=== PATIENT | female | born 1980 | race Caucasian/White ===

== ENCOUNTER 2016-12-01 18:51 | Emergency (ER) | payer SELFPAY ==
--- NOTE | 2016-12-01 19:16 | ER Document Report ---
ED Medical Screen (RME) - General Stated Complaint: POSSIBLE KIDNEY STONES Mode of Arrival: Ambulatory Information source: Patient Notes: Patient complains of right flank pain that radiates to right side of abdomen. Pain started 3 days ago. Patient has a history of kidney stones and suspects same today. Patient started taking Flomax at home. Patient complains of dysuria. Patient complains of vaginal discharge and vaginal bleeding. No fever. hx: Kidney stones I have greeted and performed a rapid initial assessment of this patient. A comprehensive ED assessment and evaluation of the patient, analysis of test results and completion of the medical decision making process will be conducted by additional ED providers. TRAVEL OUTSIDE OF THE [place] IN LAST 30 DAYS: No - Related Data Allergies/Adverse Reactions: valacyclovir HCl [From Valtrex] Allergy (Verified 09/18/16 12:48) Hives cayden Allergy (Uncoded 09/18/16 12:48) Respiratory distress Past Medical History - Past Medical History Cardiac Medical History: Reports: Hx Hypertension Renal/ Medical History: Reports: Hx Kidney Stones, Hx Ovarian Cysts GI Medical History: Reports: Hx Gastroesophageal Reflux Disease. Denies: Hx Gastritis Psychiatric Medical History: Reports: Hx Anxiety, Hx Attention Deficit Hyperactivity Disorder Past Surgical History: Reports: Hx Kidney (Renal Surgery) - lithotripsy, Hx Oral Surgery, Hx Orthopedic Surgery - L elbow bone graft, Hx Tonsillectomy - Immunizations Immunizations up to date: Yes Hx Diphtheria, Pertussis, Tetanus Vaccination: Yes Physical Exam - Vital signs Vitals: Temp Pulse Resp BP Pulse Ox 98.0 F 91 19 125/87 H 100 12/01/16 18:55 12/01/16 18:55 12/01/16 18:55 12/01/16 18:55 12/01/16 18:55 - Back Back: CVA tenderness - Right flank Course - Vital Signs Vital signs: Temp Pulse Resp BP Pulse Ox 98.0 F 91 19 125/87 H 100 12/01/16 18:55 12/01/16 18:55 12/01/16 18:55 12/01/16 18:55 12/01/16 18:55
[2016-12-01 20:28] LABS: ABSOLUTE BASOPHILS # (AUTO) 0.1 10^3/uL (0.0-0.2); ABSOLUTE EOSINOPHILS # (AUTO) 0.3 10^3/uL (0.0-0.6); ABSOLUTE LYMPHOCYTES (AUTO) 2.6 10^3/uL (0.5-4.7); ABSOLUTE MONOCYTES (AUTO) 0.6 10^3/uL (0.1-1.4); ABSOLUTE NEUT (AUTO) 4.6 10^3/uL (1.7-8.2); BASOPHILS % (AUTO) 0.9 % (0-2); EOSINOPHILS % (AUTO) 3.1 % (0-6); HEMATOCRIT 45.9 % (36.0-47.0); HEMOGLOBIN 15.2 g/dL (12.0-15.5); HGB HCT DIFFERENCE -0.3; LYMPHOCYTES % (AUTO) 31.6 % (13-45); MEAN CORPUSCULAR HEMOGLOBIN 32.6 pg (27.0-33.4); MEAN CORPUSCULAR HGB CONC 33.2 g/dL (32.0-36.0); MEAN CORPUSCULAR VOLUME 98 fl (80-97); MONOCYTES % (AUTO) 7.7 % (3-13); RED BLOOD COUNT 4.67 10^6/uL (3.72-5.28); RED CELL DISTRIBUTION WIDTH 13.7 % (11.5-14.0); SEGMENTED NEUTROPHILS % (AUTO) 56.7 % (42-78); WHITE BLOOD COUNT 8.2 10^3/uL (4.0-10.5)
[2016-12-01 20:32] LABS: APPEARANCE,URINE CLEAR; BILIRUBIN,URINE NEGATIVE (NEGATIVE); GLUCOSE, URINE NEGATIVE (NEGATIVE); KETONES,URINE NEGATIVE (NEGATIVE); LEUKOCYTE ESTERASE,URINE NEGATIVE (NEGATIVE); NITRITE,URINE NEGATIVE (NEGATIVE); PROTEIN,URINE NEGATIVE (NEGATIVE); URINE SPECIFIC GRAVITY 1.004; UROBILINOGEN,URINE NEGATIVE mg/dL (<2.0)
[2016-12-01 20:47] LABS: ALANINE AMINOTRANSFERASE 21 U/L (9-52); ALBUMIN 5.4 g/dL (3.5-5.0); ALKALINE PHOSPHATASE 64 U/L (38-126); ANION GAP 14 (5-19); ASPARTATE AMINO TRANSFERASE 21 U/L (14-36); BLOOD UREA NITROGEN 10 mg/dL (7-20); CALCIUM 10.9 mg/dL (8.4-10.2); CARBON DIOXIDE 25 mmol/L (22-30); CHLORIDE 104 mmol/L (98-107); CREATININE RESULT 0.69 mg/dL (0.52-1.25); GLUCOSE 96 mg/dL (75-110); LIPASE 83.4 U/L (23-300); POTASSIUM 4.9 mmol/L (3.6-5.0); SODIUM 143.2 mmol/L (137-145); TOTAL PROTEIN 8.6 g/dL (6.3-8.2)
[2016-12-01] MEDS ORDERED: OXYCODONE-ACETAMINOPHEN 5-325 MG TABLET PO ONE (23:20)
[2016-12-01] MEDS ORDERED: ONDANSETRON 4 MG TAB.RAPDIS PO ONE (23:20)
--- NOTE | 2016-12-01 23:24 | ER Document Report ---
ED GI/ - General Chief Complaint: Flank Pain Stated Complaint: POSSIBLE KIDNEY STONES Mode of Arrival: Ambulatory Notes: Patient is a 36 year old female that comes emergency department for chief complaint of sharp pain in her right pelvic area that started today, she denies vomiting, denies fever, she does feel some radiation to her lower back on the right side. She states that she has started having vaginal bleeding, she recently finished her menstrual cycle about 2 weeks ago. She is sexually active. She denies fever, trauma. Past medical history of kidney stones, she states she wonders if she is passing a kidney stone. TRAVEL OUTSIDE OF THE [place] IN LAST 30 DAYS: No - Related Data Allergies/Adverse Reactions: valacyclovir HCl [From Valtrex] Allergy (Verified 12/01/16 19:18) Hives cayden Allergy (Uncoded 12/01/16 19:18) Respiratory distress Past Medical History - General Information source: Patient - Social History Smoking Status: Former Smoker Frequency of alcohol use: None Drug Abuse: None Lives with: Family Family History: Reviewed & Not Pertinent - Past Medical History Cardiac Medical History: Reports: Hx Hypertension Renal/ Medical History: Reports: Hx Kidney Stones, Hx Ovarian Cysts. Denies: Hx Peritoneal Dialysis GI Medical History: Reports: Hx Gastroesophageal Reflux Disease. Denies: Hx Gastritis Psychiatric Medical History: Reports: Hx Anxiety, Hx Attention Deficit Hyperactivity Disorder Past Surgical History: Reports: Hx Kidney (Renal Surgery) - lithotripsy, Hx Oral Surgery, Hx Orthopedic Surgery - L elbow bone graft, Hx Tonsillectomy - Immunizations Immunizations up to date: Yes Hx Diphtheria, Pertussis, Tetanus Vaccination: Yes Review of Systems - Review of Systems Constitutional: No symptoms reported EENT: No symptoms reported Cardiovascular: No symptoms reported Respiratory: No symptoms reported Gastrointestinal: See HPI Genitourinary: See HPI Female Genitourinary: See HPI Musculoskeletal: No symptoms reported Skin: No symptoms reported Hematologic/Lymphatic: No symptoms reported Neurological/Psychological: No symptoms reported Physical Exam - Vital signs Vitals: Temp Pulse Resp BP Pulse Ox 98.0 F 91 19 125/87 H 100 12/01/16 18:55 12/01/16 18:55 12/01/16 18:55 12/01/16 18:55 12/01/16 18:55 Interpretation: Normal - General General appearance: Anxious In distress: None - Patient appears nervous and slightly uncomfortable but does not appear to be in any distress - HEENT Head: Normocephalic, Atraumatic Eyes: Normal Pupils: PERRL - Respiratory Respiratory status: No respiratory distress Chest status: Nontender Breath sounds: Normal Chest palpation: Normal - Cardiovascular Rhythm: Regular Heart sounds: Normal auscultation Murmur: No - Abdominal Inspection: Normal Distension: No distension Bowel sounds: Normal Tenderness: Tender - Patient is tender in the right lower pelvic region, no McBurney's point tenderness, no significant tenderness otherwise Organomegaly: No organomegaly - Back Back: Normal, Nontender. No: CVA tenderness - Extremities General upper extremity: Normal inspection, Nontender, Normal color, Normal ROM , Normal temperature General lower extremity: Normal inspection, Nontender, Normal color, Normal ROM , Normal temperature, Normal weight bearing. No: Azar's sign - Neurological Neuro grossly intact: Yes Cognition: Normal Orientation: AAOx4 Dong Coma Scale Eye Opening: Spontaneous Dong Coma Scale Verbal: Oriented [place] Coma Scale Motor: Obeys Commands [place] Coma Scale Total: 15 Speech: Normal Motor strength normal: LUE, RUE, LLE, RLE Sensory: Normal - Psychological Associated symptoms: Anxious - Skin Skin Temperature: Warm Skin Moisture: Dry Skin Color: Normal Course - Re-evaluation Re-evalutation: On examination patient has no CVA tenderness, no lower abdominal tenderness, however she does have tenderness in the right pelvic region on examination with wincing. Pelvic examination is unremarkable, IUD strings in place. No hematuria suggesting ureterolithiasis. Blood work is unremarkable. Vital signs unremarkable. 12/02/16 Wet prep unremarkable, gonorrhea and Chlamydia negative, ultrasound with no acute findings including no ovarian cysts, significant free fluid, or evidence of torsion. Patient with minimal to no bleeding now. 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 Patient states understanding and agreement. - Vital Signs Vital signs: Temp Pulse Resp BP Pulse Ox 98.0 F 91 19 125/87 H 100 12/01/16 18:55 12/01/16 18:55 12/01/16 18:55 12/01/16 18:55 12/01/16 18:55 - Laboratory Result Diagrams: 12/01/16 20:15 12/01/16 20:15 Laboratory results interpreted by me: 12/01/16 12/01/16 12/01/16 20:15 20:15 20:20 MCV 98 H Calcium 10.9 H Total Protein 8.6 H Albumin 5.4 H Urine Blood SMALL H Discharge - Discharge Clinical Impression: Pelvic pain, Vaginal bleeding Condition: Stable Disposition: HOME, SELF-CARE Additional Instructions: The ultrasound shows no concerning abnormalities, the IUD is in place, lab work including pelvic exam workup showed no abnormalities. 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 Return to the emergency department for any concerning or worsening symptoms. Dysfunctional Uterine Bleeding You're having an abnormal pattern of bleeding from the uterus. We call this dysfunctional uterine bleeding. It is most often caused by a hormone imbalance. Most often this is temporary and no cause is found. There's no evidence of , tumors, or infection as a cause. Dysfunctional uterine bleeding is especially common at times when the normal menstrual cycle is disturbed -- whether by recent , use of control pills or hormones, or impending menopause. Some medical problems lead to dysfunctional bleeding, such as obesity or being very underweight, stress, or thyroid problems. In many cases, the menstrual cycle will return to normal without any treatment. Where the bleeding is significant, high-dose estrogen will usually stop the bleeding within a day of two. A cycle or two of hormones ( control pills) can help restore the uterus to normal. In some patients where bleeding is severe or resistant to treatment, a D&C is required. A endometrial biopsy (a sample of the inside of the uterus) may be recommended for some older women. This would be done by a gynecology specialist. Treatment for anemia may be required if bleeding is severe. You should rest and avoid intercourse until the bleeding is controlled. Call the doctor or return for re-examination if you feel faint, have increasing pain, or have a major increase in the amount of bleeding. Prescriptions: Ketorolac Tromethamine [Toradol 10 mg Tablet] 10 mg PO Q8HP PRN #24 tablet PRN Reason: Forms: Return to Work
[2016-12-02 01:43] LABS: CHLAM PCR NOT DETECTED (NOT DETECT)
[2016-12-02] MEDS ORDERED: OXYCODONE-ACETAMINOPHEN 5-325 MG TABLET PO ONE (02:08)
[2016-12-02] MEDS ORDERED: HYDROCODONE/ACETAMINOPHEN 5-325 MG 6 TAB/DSPK PO PRN (02:34)
[2016-12-02 04:01] VITALS: BP 138/94
== END 2016-12-02 03:35 | disposition home or self-care (01) ==
LOC: ER 18:51
DX: R10.2 Pelvic and perineal pain (principal); N93.9 Abnormal uterine and vaginal bleeding, unspecified; I10 Essential (primary) hypertension; Z87.442 Personal history of urinary calculi; Z91.018 Allergy to other foods; Z88.3 Allergy status to other anti-infective agents; Z87.891 Personal history of nicotine dependence; Z87.42 Personal history of other diseases of the female genital tract; Z97.5 Presence of (intrauterine) contraceptive device
CPT/HCPCS: 99284; 36415; 87210; 83690; 84703; 85025; 80053; 81001; 87491; 87591; 76830; 93976; S0119

== ENCOUNTER 2017-02-22 11:35 | Emergency (ER) | payer SELFPAY ==
--- NOTE | 2017-02-22 11:59 | ER Document Report ---
ED Fall - General Mode of Arrival: Medic Information source: Patient TRAVEL OUTSIDE OF THE [place] IN LAST 30 DAYS: No - HPI Patient complains to provider of: Head, Neck, and Back pain Context: Slipped, Fell from height Associated symptoms: Other - see notes above. denies: Lost consciousness Location of injury/pain: Back, Head, Neck - General Chief Complaint: Head Injury without LOC Stated Complaint: HEAD PAIN Time Seen by Provider: 02/22/17 11:48 Notes: 36 year old female with history of herniated thoracic discs and Von Willebrand disease presents to the ED via EMS after slipping on her bath tub and falling backwards hitting her head on the tub just prior to arrival. Patient reports that she has head, neck, upper back, and tailbone pain. Patient denies loss of consciousness or any bleeding. Patient does not have a primary care provider and has not seen one in over a year. (MIAN SHARMA) - Related data Allergies/Adverse Reactions: valacyclovir HCl [From Valtrex] Allergy (Verified 12/01/16 19:18) Hives cayden Allergy (Uncoded 12/01/16 19:18) Respiratory distress Past Medical History - General Information source: Patient - Social History Smoking Status: Unknown if Ever Smoked Family History: Reviewed & Not Pertinent - Past Medical History Cardiac Medical History: Reports: Hx Hypertension, Other - Von Willebrand Disease Renal/ Medical History: Reports: Hx Kidney Stones, Hx Ovarian Cysts. Denies: Hx Peritoneal Dialysis GI Medical History: Reports: Hx Gastroesophageal Reflux Disease. Denies: Hx Gastritis Musculoskeltal Medical History: Reports Other - herniated thoracic discs Psychiatric Medical History: Reports: Hx Anxiety, Hx Attention Deficit Hyperactivity Disorder Past Surgical History: Reports: Hx Kidney (Renal Surgery) - lithotripsy, Hx Oral Surgery, Hx Orthopedic Surgery - L elbow bone graft, Hx Tonsillectomy - Immunizations Immunizations up to date: Yes Hx Diphtheria, Pertussis, Tetanus Vaccination: Yes Review of Systems - Review of Systems Constitutional: No symptoms reported EENT: No symptoms reported Cardiovascular: No symptoms reported Respiratory: No symptoms reported Gastrointestinal: No symptoms reported Genitourinary: No symptoms reported Female Genitourinary: No symptoms reported Musculoskeletal: See HPI, Back pain - upper and tailbone, Neck pain, Other - posterior head pain Skin: No symptoms reported Hematologic/Lymphatic: No symptoms reported Neurological/Psychological: No symptoms reported. denies: Lost consciousness -: Yes All other systems reviewed and negative Physical Exam - General General appearance: Alert In distress: None - HEENT Head: Normocephalic, Atraumatic Eyes: Normal Extraocular movements intact: Yes Pupils: PERRL Neck: Other - C-collar in place. - Respiratory Respiratory status: No respiratory distress Breath sounds: Normal - Cardiovascular Rhythm: Regular Heart sounds: Normal auscultation - Abdominal Inspection: Normal - Back Back: Tender, Vertebra tenderness - Midline thoracic and lower lumbar tenderness to palpation. No contusion, step off, or deformity.. 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 This often occurs with strenuous exertion, or during an injury that suddenly stretches the muscle. The seriousness of a strain varies. Some strains heal within days, others cause problems for months. X-rays cannot show a muscle strain. X-rays are taken only if symptoms suggest that a fracture could be present. The usual treatment of a muscle strain is rest and ice packs. Sometimes, a sling, splint, or crutches may be necessary to rest the muscle. The muscle can be used again once pain subsides. Severe strains require a special exercise and stretching program to prevent permanent stiffness and disability. Your doctor will advise you if this will be necessary. Call the doctor immediately if pain or swelling becomes severe, or if numbness or discoloration develop. Forms: Return to Work Referrals: [facility] [Provider Group] - Follow up in 3-5 days Scribe Attestation: 02/22/17 13:43 I personally performed the services described in the documentation reviewed the documentation recorded by my scribe in my presence and it accurately and completely records my words and actions (CAROLINA FLORES) Scribe Documentation - Scribe Written by Scribe:: Luis Gonzalez, 02/22/2017 1221 acting as scribe for :: Yunior
[2017-02-22] MEDS ORDERED: ONDANSETRON HCL INJ/PF 4 MG/2 ML SDV ONE (12:07)
[2017-02-22] MEDS ORDERED: ONDANSETRON HCL INJ/PF 4 MG/2 ML SDV IV ONE (13:31)
[2017-02-22 14:08] VITALS: BP 126/81
--- NOTE | 2017-05-06 20:02 | ER Document Report ---
Doctor's Note Notes: 05/06/17 20:02 diagnosis 1. acute low back strain
== END 2017-02-22 14:00 | disposition home or self-care (01) ==
LOC: ER 11:35
DX: S09.90XA Unspecified injury of head, initial encounter (principal); R51 Headache; M54.2 Cervicalgia; M54.89 Other dorsalgia; M53.3 Sacrococcygeal disorders, not elsewhere classified; W18.2XXA Fall in (into) shower or empty bathtub, initial encounter; I10 Essential (primary) hypertension; Z91.018 Allergy to other foods; Z88.3 Allergy status to other anti-infective agents
CPT/HCPCS: 99284; 96374; 72110; 70450; 72125; 72128; L0120; J2405

== ENCOUNTER 2017-04-24 10:34 | Emergency (ER) | payer SELFPAY ==
[2017-04-24] MEDS ORDERED: ONDANSETRON 4 MG TAB.RAPDIS PO ONE (10:47)
[2017-04-24] MEDS ORDERED: OXYCODONE-ACETAMINOPHEN 5-325 MG TABLET PO ONE (10:47)
[2017-04-24] MEDS ORDERED: NORMAL SALINE 1000 ML 1,000 ML IV ONE (10:47)
--- NOTE | 2017-04-24 10:49 | ER Document Report ---
ED Medical Screen (RME) - General Chief Complaint: Flank Pain Stated Complaint: LOWER BACK PAIN Time Seen by Provider: 04/24/17 10:46 Information source: Patient Notes: 36-year-old female who presents with the onset around 1 week of some intermittent bilateral flank pain. She states it is worse the last 2 days. She also states some "vaginal pain". She denies any discharge, dysuria, vomiting, fevers, or diarrhea. Patient does have a history of kidney stones. Patient also states she has some pain in her bilateral upper hips and thighs. She denies any weakness of her legs. TRAVEL OUTSIDE OF THE [place] IN LAST 30 DAYS: No - Related Data Allergies/Adverse Reactions: valacyclovir HCl [From Valtrex] Allergy (Verified 04/24/17 10:37) Hives cayden Allergy (Uncoded 04/24/17 10:37) Respiratory distress Past Medical History - Past Medical History Cardiac Medical History: Reports: Hx Hypertension Renal/ Medical History: Reports: Hx Kidney Stones, Hx Ovarian Cysts. Denies: Hx Peritoneal Dialysis GI Medical History: Reports: Hx Gastroesophageal Reflux Disease. Denies: Hx Gastritis Psychiatric Medical History: Reports: Hx Anxiety, Hx Attention Deficit Hyperactivity Disorder Past Surgical History: Reports: Hx Kidney (Renal Surgery) - lithotripsy, Hx Oral Surgery, Hx Orthopedic Surgery - L elbow bone graft, Hx Tonsillectomy - Immunizations Immunizations up to date: Yes Hx Diphtheria, Pertussis, Tetanus Vaccination: Yes Physical Exam - Vital signs Vitals: Temp Pulse Resp BP Pulse Ox 97.9 F 108 H 20 153/101 H 100 04/24/17 10:37 04/24/17 10:37 04/24/17 10:37 04/24/17 10:37 04/24/17 10:37 Course - Vital Signs Vital signs: Temp Pulse Resp BP Pulse Ox 97.9 F 108 H 20 153/101 H 100 04/24/17 10:37 04/24/17 10:37 04/24/17 10:37 04/24/17 10:37 04/24/17 10:37
[2017-04-24 11:23] LABS: APPEARANCE,URINE CLEAR; BILIRUBIN,URINE NEGATIVE (NEGATIVE); GLUCOSE, URINE NEGATIVE (NEGATIVE); KETONES,URINE NEGATIVE (NEGATIVE); LEUKOCYTE ESTERASE,URINE NEGATIVE (NEGATIVE); NITRITE,URINE NEGATIVE (NEGATIVE); PROTEIN,URINE NEGATIVE (NEGATIVE); URINE SPECIFIC GRAVITY 1.018; UROBILINOGEN,URINE NEGATIVE mg/dL (<2.0)
[2017-04-24 11:32] LABS: ABSOLUTE BASOPHILS # (AUTO) 0.1 10^3/uL (0.0-0.2); ABSOLUTE EOSINOPHILS # (AUTO) 0.3 10^3/uL (0.0-0.6); ABSOLUTE LYMPHOCYTES (AUTO) 2.2 10^3/uL (0.5-4.7); ABSOLUTE MONOCYTES (AUTO) 0.6 10^3/uL (0.1-1.4); ABSOLUTE NEUT (AUTO) 2.4 10^3/uL (1.7-8.2); BASOPHILS % (AUTO) 1.2 % (0-2); EOSINOPHILS % (AUTO) 4.8 % (0-6); HEMATOCRIT 45.3 % (36.0-47.0); HEMOGLOBIN 15.4 g/dL (12.0-15.5); HGB HCT DIFFERENCE 0.9; LYMPHOCYTES % (AUTO) 40.5 % (13-45); MEAN CORPUSCULAR HEMOGLOBIN 33.5 pg (27.0-33.4); MEAN CORPUSCULAR VOLUME 99 fl (80-97); MONOCYTES % (AUTO) 10.7 % (3-13); RED CELL DISTRIBUTION WIDTH 13.2 % (11.5-14.0); SEGMENTED NEUTROPHILS % (AUTO) 42.8 % (42-78); WHITE BLOOD COUNT 5.5 10^3/uL (4.0-10.5)
[2017-04-24 11:39] LABS: ANION GAP 12 (5-19); BLOOD UREA NITROGEN 12 mg/dL (7-20); CALCIUM 9.7 mg/dL (8.4-10.2); CARBON DIOXIDE 28 mmol/L (22-30); CHLORIDE 102 mmol/L (98-107); CREATININE RESULT 0.87 mg/dL (0.52-1.25); GLUCOSE 93 mg/dL (75-110); POTASSIUM 4.5 mmol/L (3.6-5.0); SODIUM 141.8 mmol/L (137-145)
--- NOTE | 2017-04-24 12:31 | RADIOLOGY REPORT (SQ) ---
EXAM DESCRIPTION: CT LTD RENAL STONE PROTOCOL ON COMPLETED DATE/TIME: 04/24/2017 12:00 pm REASON FOR STUDY: PIT 1, flank pain and llq pain. H/o stones COMPARISON: None. TECHNIQUE: CT scan of the abdomen and pelvis performed without intravenous or oral contrast. Images reviewed with lung, soft tissue, and bone windows. Reconstructed coronal and sagittal MPR images revi ewed. All images stored on PACS. All CT scanners at this facility use dose modulation, iterative reconstruction, and/or weight based d osing when appropriate to reduce radiation dose to as low as reasonably achievable (ALARA). [facility]: Dose Right [facility]: CareDose [facility]: Dose Right [facility]: Teradose 4D [facility]: Smart [employer] RADIATION DOSE: Up-to-date CT equipment and radiation dose reduction techniques were employed. CTDIv ol: 4.8 mGy. DLP: 263 mGy-cm.mGy. LIMITATIONS: None. FINDINGS: LOWER CHEST: No significant findings. No nodules or infiltrates. NON-CONTRASTED LIVER, SPLEEN, ADRENALS: Evaluation limited by lack of IV contrast. No identified sign ificant masses. PANCREAS: No masses. No peripancreatic inflammatory changes. GALLBLADDER: No identified stones by CT criteria. No inflammatory changes to suggest cholecystitis. RIGHT KIDNEY AND URETER: No suspicious masses. Assessment limited by lack of IV contrast. No signif icant calcifications. No hydronephrosis or hydroureter. LEFT KIDNEY AND URETER: No suspicious masses. Assessment limited by lack of IV contrast. No signifi cant calcifications. No hydronephrosis or hydroureter. AORTA AND RETROPERITONEUM: No aneurysm. No retroperitoneal masses or adenopathy. BOWEL AND PERITONEAL CAVITY: No obvious masses or inflammatory changes. No free fluid. Large amount of stool in the colon. APPENDIX: Normal. PELVIS, BLADDER, AND ABDOMINAL WALL:No abnormal masses. No free fluid. Bladder normal. Normal size f emale pelvic organs. IUD in the uterus. BONES: No significant findings. OTHER: No other significant finding. IMPRESSION: No CT evidence of obstructive urinary calculi Large amount of stool in the colon TECHNICAL DOCUMENTATION: JOB ID: [id number] Quality ID # [id number]: Final reports with documentation of one or more dose reduction techniques (e.g., Au tomated exposure control, adjustment of the mA and/or kV according to patient size, use of iterative reconstruction technique) 2011 [employer]- All Rights Reserved
--- NOTE | 2017-04-24 12:33 | ER Document Report ---
ED General - General Chief Complaint: Flank Pain Stated Complaint: LOWER BACK PAIN Time Seen by Provider: 04/24/17 10:46 Mode of Arrival: Ambulatory Information source: Patient TRAVEL OUTSIDE OF THE [place] IN LAST 30 DAYS: No - HPI Notes: 36-year-old female presents with increasing back pain over the last 48 hours. She reports to me she has been having some intermittent pain that she thought was related to her chronic kidney stones the last couple of weeks. She has noted much more severe low back pain now with pain radiating to the dorsum of her left thigh, a little bit to the front as well. Pain also radiates to her buttocks bilaterally. Denies distal numbness or tingling. She does have a history of work-related herniated disks in her lower thoracic region. She denies any new numbness tingling, incontinence of bowel or bladder change otherwise. She had a little hematuria but no specific dysuria. She reports no abdominal pain to me or vaginal discomfort/discharge. Pain is worse with movement. She has found no other alleviating or exacerbating symptoms. - Related Data Allergies/Adverse Reactions: valacyclovir HCl [From Valtrex] Allergy (Verified 04/24/17 10:37) Hives cayden Allergy (Uncoded 04/24/17 10:37) Respiratory distress Past Medical History - General Information source: Patient - Social History Smoking Status: Smoker,Current Status Unk Family History: Reviewed & Not Pertinent Patient has suicidal ideation: No Patient has homicidal ideation: No - Past Medical History Cardiac Medical History: Reports: Hx Hypertension Renal/ Medical History: Reports: Hx Kidney Stones, Hx Ovarian Cysts. Denies: Hx Peritoneal Dialysis GI Medical History: Reports: Hx Gastroesophageal Reflux Disease. Denies: Hx Gastritis Psychiatric Medical History: Reports: Hx Anxiety, Hx Attention Deficit Hyperactivity Disorder Past Surgical History: Reports: Hx Kidney (Renal Surgery) - lithotripsy, Hx Oral Surgery, Hx Orthopedic Surgery - L elbow bone graft, Hx Tonsillectomy - Immunizations Immunizations up to date: Yes Hx Diphtheria, Pertussis, Tetanus Vaccination: Yes Review of Systems - Review of Systems -: Yes All other systems reviewed and negative Physical Exam - Vital signs Vitals: Temp Pulse Resp BP Pulse Ox 97.9 F 108 H 20 153/101 H 100 04/24/17 10:37 04/24/17 10:37 04/24/17 10:37 04/24/17 10:37 04/24/17 10:37 - Notes Notes: GENERAL: VS as per nursing doc. Well-appearing, well-nourished and in no acute distress. HEAD: Atraumatic, normocephalic. EYES: Pupils equal round and reactive to light, extraocular movements intact, sclera anicteric, no conjunctival injection or discharge. ENT: Nares patent, oropharynx clear without exudates, moist mucous membranes. NECK: Normal range of motion, supple without lymphadenopathy. LUNGS: Breath sounds clear to auscultation bilaterally and equal. No wheezes rales or rhonchi. HEART: Regular rate and rhythm without murmurs. ABDOMEN: Soft, non-tender, normoactive bowel sounds. No guarding, no rebound. No masses appreciated. No Columbia sign. BACK: Mild CVA tenderness but more tender over the lower lumbar region more towards the lumbosacral junction bilaterally and in the midline region. She also has a split deformity, some decreased range of motion secondary to pain. EXTREMITIES: Normal range of motion, no calf tenderness, no edema. NEUROLOGICAL: Normal speech. Normal sensory and motor exams. No gross cerebellar abnormalities.5/5 lower extremity strength and sensation. 3+ and equal patellar reflexes PSYCH: Normal mood, normal affect. SKIN: Warm, dry, normal turgor, no shingles rash . Course - Re-evaluation Re-evalutation: 04/24/17 15:16 Received mild relief. Reviewed her prior medical records and her prior medication use. She did use Percocet at home without much relief she reported. I suspect she will have some difficulty with this but will get follow-up with her primary care physician. Discussed with her physical therapy and other modalities for pain control. Will place her on a course of steroids as well as Robaxin/NSAIDs to see if she can get some improvement - Vital Signs Vital signs: Temp Pulse Resp BP Pulse Ox 97.9 F 108 H 20 153/101 H 100 04/24/17 10:37 04/24/17 10:37 04/24/17 10:37 04/24/17 10:37 04/24/17 10:37 - Laboratory Result Diagrams: 04/24/17 10:57 04/24/17 10:57 Laboratory results interpreted by me: 04/24/17 10:57 MCV 99 H MCH 33.5 H Discharge - Discharge Clinical Impression: Back pain Condition: Fair Additional Instructions: Return for emergency or concern. Contact your physician for follow-up today. Discuss multiple modalities of pain treatment including physical therapy, NSAIDs as well as other medications. Limit activity and lifting for the next few days. Prescriptions: Methocarbamol [Robaxin 750 mg Tablet] 750 - 1,500 mg PO Q8HP PRN #20 tablet PRN Reason: For Pain Naproxen Sodium [Anaprox Ds] 550 mg PO BID PRN #20 tablet PRN Reason: For Pain Prednisone [Deltasone 20 mg Tablet] 2 tab PO DAILY #10 tablet Forms: Elevated Blood Pressure
[2017-04-24] MEDS ORDERED: MORPHINE SULFATE 10 MG/ML INJ IV ONE (13:26)
[2017-04-24] MEDS ORDERED: KETOROLAC TROMETHAMINE INJ/PF 30 MG/1 ML SDV IV ONE (13:27)
[2017-04-24 15:56] VITALS: BP 115/83
== END 2017-04-24 15:55 | disposition home or self-care (01) ==
LOC: ER 10:34
DX: M54.5 Low back pain (principal); R31.9 Hematuria, unspecified; I10 Essential (primary) hypertension; Z87.442 Personal history of urinary calculi; Z91.018 Allergy to other foods; Z88.3 Allergy status to other anti-infective agents
CPT/HCPCS: 99284; 36415; 85025; 81025; 80048; 81001; 76380; S0119; J1885; J2270; J7030

== ENCOUNTER 2017-08-17 13:22 | Emergency (ER) | payer SELFPAY ==
[2017-08-17] MEDS ORDERED: NORMAL SALINE 1000 ML 1,000 ML IV ONE (13:46)
[2017-08-17] MEDS ORDERED: ONDANSETRON HCL INJ/PF 4 MG/2 ML SDV IV ONE ×2 (13:46→20:55)
--- NOTE | 2017-08-17 13:48 | ER Document Report ---
ED Medical Screen (RME) - General Chief Complaint: Abdominal Pain Stated Complaint: VOMITING Time Seen by Provider: 08/17/17 13:45 Mode of Arrival: Wheelchair Information source: Patient TRAVEL OUTSIDE OF THE [place] IN LAST 30 DAYS: No - HPI Patient complains to provider of: abd pain; vomiting Onset: Other - Pt states she has had abdominal pain and recurrent vomiting for the past week. - Related Data Allergies/Adverse Reactions: valacyclovir HCl [From Valtrex] Allergy (Verified 08/17/17 13:32) Hives cayden Allergy (Uncoded 08/17/17 13:32) Respiratory distress Past Medical History - Past Medical History Cardiac Medical History: Reports: Hx Hypertension Renal/ Medical History: Reports: Hx Kidney Stones, Hx Ovarian Cysts. Denies: Hx Peritoneal Dialysis GI Medical History: Reports: Hx Gastroesophageal Reflux Disease. Denies: Hx Gastritis Psychiatric Medical History: Reports: Hx Anxiety, Hx Attention Deficit Hyperactivity Disorder Past Surgical History: Reports: Hx Kidney (Renal Surgery) - lithotripsy, Hx Oral Surgery, Hx Orthopedic Surgery - L elbow bone graft, Hx Tonsillectomy - Immunizations Immunizations up to date: Yes Hx Diphtheria, Pertussis, Tetanus Vaccination: Yes Physical Exam - Vital signs Vitals: Temp Pulse Resp Pulse Ox 97.8 F 121 H 20 96 08/17/17 13:33 08/17/17 13:33 08/17/17 13:33 08/17/17 13:33 Course - Vital Signs Vital signs: Temp Pulse Resp BP Pulse Ox 97.8 F 121 H 20 96 08/17/17 13:33 08/17/17 13:33 08/17/17 13:33 08/17/17 13:33
[2017-08-17 14:59] LABS: ABSOLUTE BASOPHILS # (AUTO) 0.1 10^3/uL (0.0-0.2); ABSOLUTE LYMPHOCYTES (AUTO) 2.1 10^3/uL (0.5-4.7); ABSOLUTE MONOCYTES (AUTO) 0.4 10^3/uL (0.1-1.4); ABSOLUTE NEUT (AUTO) 1.5 10^3/uL (1.7-8.2); BASOPHILS % (AUTO) 2.2 % (0-2); EOSINOPHILS % (AUTO) 0.9 % (0-6); HEMATOCRIT 39.5 % (36.0-47.0); HGB HCT DIFFERENCE 2.5; LYMPHOCYTES % (AUTO) 49.9 % (13-45); MEAN CORPUSCULAR HEMOGLOBIN 34.2 pg (27.0-33.4); MEAN CORPUSCULAR HGB CONC 35.4 g/dL (32.0-36.0); MEAN CORPUSCULAR VOLUME 97 fl (80-97); MONOCYTES % (AUTO) 9.5 % (3-13); RED CELL DISTRIBUTION WIDTH 13.2 % (11.5-14.0); SEGMENTED NEUTROPHILS % (AUTO) 37.5 % (42-78); WHITE BLOOD COUNT 4.1 10^3/uL (4.0-10.5)
[2017-08-17 15:10] LABS: APPEARANCE,URINE CLEAR; BILIRUBIN,URINE NEGATIVE (NEGATIVE); GLUCOSE, URINE NEGATIVE (NEGATIVE); KETONES,URINE NEGATIVE (NEGATIVE); LEUKOCYTE ESTERASE,URINE NEGATIVE (NEGATIVE); NITRITE,URINE NEGATIVE (NEGATIVE); PROTEIN,URINE 30 mg/dL (NEGATIVE); URINE SPECIFIC GRAVITY 1.006; UROBILINOGEN,URINE NEGATIVE mg/dL (<2.0)
--- NOTE | 2017-08-17 15:38 | RADIOLOGY REPORT (SQ) ---
EXAM DESCRIPTION: ACUTE ABDOMEN SERIES COMPLETED DATE/TIME: 08/17/2017 3:30 pm REASON FOR STUDY: abd pain; vomiting COMPARISON: None. NUMBER OF VIEWS: Three views. TECHNIQUE: Frontal chest, supine abdomen and upright/decubitus abdomen radiographic images acquired. LIMITATIONS: None. FINDINGS: CHEST: Lungs clear of infiltrates. FREE AIR: None. No abnormal gas collections. BOWEL GAS PATTERN: Nonobstructive pattern. No dilated loops or air fluid levels. CONSTIPATION: moderate. CALCIFICATIONS: No suspicious calcifications. HARDWARE: IUD. SOFT TISSUES: No gross mass or suggestion of organomegaly. BONES: No acute fracture. No worrisome bone lesions. OTHER: No other significant finding. IMPRESSION: NO RADIOGRAPHIC EVIDENCE FOR ACUTE ABDOMINAL DISEASE. MODERATE CONSTIPATION. IUD. TECHNICAL DOCUMENTATION: JOB ID: [id number] [employer]- All Rights Reserved
[2017-08-17] MEDS ORDERED: KETOROLAC TROMETHAMINE INJ/PF 30 MG/1 ML SDV IV ONE (15:43)
[2017-08-17] MEDS ORDERED: NORMAL SALINE 1000 ML 1,000 ML IV PRN ×2 (15:43→20:08)
[2017-08-17] MEDS ORDERED: FAMOTIDINE INJ/PF 20 MG/2 ML SDV IV ONE (15:43)
--- NOTE | 2017-08-17 15:44 | ER Document Report ---
ED GI/ - General Chief Complaint: Abdominal Pain Stated Complaint: VOMITING Time Seen by Provider: 08/17/17 13:45 Mode of Arrival: Wheelchair Information source: Patient TRAVEL OUTSIDE OF THE [place] IN LAST 30 DAYS: No - HPI Patient complains to provider of: Abdominal pain, Vomiting Onset: Other - 5 days Timing/Duration: Gradual Quality of pain: Achy, Cramping Severity at maximum: Moderate Severity in ED: Moderate Pain Level: 3 Location: Epigastric, Suprapubic Associated symptoms: Dysuria, Nausea, Urinary frequency, Vomiting Exacerbated by: Food Relieved by: Denies Notes: 08/17/17 22:16 Patient is a 37-year-old female presenting to the emergency room today complaining of 5 day history of nausea and vomiting gastric abdominal pain and pelvic pain, as well as urinary frequency and burning, and she reports that the vomiting symptoms occur anytime she tries to eat or drink something, she reports a subjective fever as well, last bowel movement was 2 days ago and was without blood and otherwise normal, she does admit to daily alcohol intake with increased intake over the past 2 weeks, prior to that she was drinking sporadically - Related Data Allergies/Adverse Reactions: valacyclovir HCl [From Valtrex] Allergy (Verified 08/17/17 13:32) Hives cayden Allergy (Uncoded 08/17/17 13:32) Respiratory distress Past Medical History - General Information source: Patient - Social History Smoking Status: Former Smoker Family History: Reviewed & Not Pertinent Patient has suicidal ideation: No Patient has homicidal ideation: No - Past Medical History Cardiac Medical History: Reports: Hx Hypertension Renal/ Medical History: Reports: Hx Kidney Stones, Hx Ovarian Cysts. Denies: Hx Peritoneal Dialysis GI Medical History: Reports: Hx Gastroesophageal Reflux Disease. Denies: Hx Gastritis Psychiatric Medical History: Reports: Hx Anxiety, Hx Attention Deficit Hyperactivity Disorder Past Surgical History: Reports: Hx Kidney (Renal Surgery) - lithotripsy, Hx Oral Surgery, Hx Orthopedic Surgery - L elbow bone graft, Hx Tonsillectomy - Immunizations Immunizations up to date: Yes Hx Diphtheria, Pertussis, Tetanus Vaccination: Yes Review of Systems - Review of Systems Constitutional: Chills, Fever - Subjective EENT: No symptoms reported Cardiovascular: No symptoms reported Respiratory: No symptoms reported Gastrointestinal: See HPI Genitourinary: See HPI Female Genitourinary: No symptoms reported Musculoskeletal: No symptoms reported Skin: No symptoms reported Hematologic/Lymphatic: No symptoms reported Neurological/Psychological: No symptoms reported -: Yes All other systems reviewed and negative Physical Exam - Vital signs Vitals: Temp Pulse Resp Pulse Ox 97.8 F 121 H 20 96 08/17/17 13:33 08/17/17 13:33 08/17/17 13:33 08/17/17 13:33 Interpretation: Tachycardic - General General appearance: Appears well, Alert - HEENT Head: Normocephalic, Atraumatic Eyes: Normal Pupils: PERRL - Respiratory Respiratory status: No respiratory distress Chest status: Nontender Breath sounds: Normal Chest palpation: Normal - Cardiovascular Rhythm: Regular Heart sounds: Normal auscultation Murmur: No - Abdominal Inspection: Normal Distension: No distension Bowel sounds: Normal Tenderness: Tender - Epigastric and suprapubic Organomegaly: No organomegaly - Back Back: Normal, Nontender - Extremities General upper extremity: Normal inspection, Nontender, Normal color, Normal ROM , Normal temperature General lower extremity: Normal inspection, Nontender, Normal color, Normal ROM , Normal temperature, Normal weight bearing. No: Azar's sign - Neurological Neuro grossly intact: Yes Cognition: Normal Orientation: AAOx4 [place] Coma Scale Eye Opening: Spontaneous [place] Coma Scale Verbal: Oriented [place] Coma Scale Motor: Obeys Commands [place] Coma Scale Total: 15 Speech: Normal Motor strength normal: LUE, RUE, LLE, RLE Sensory: Normal - Psychological Associated symptoms: Normal affect, Normal mood - Skin Skin Temperature: Warm Skin Moisture: Dry Skin Color: Normal Location of irregularity: Extremities - Multiple ecchymosis noted on extremities Course - Re-evaluation Re-evalutation: 08/17/17 22:06 Lab findings consistent with likely liver damage and mild pancreatitis from increased alcohol intake, ultrasound shows no abnormalities, patient also noted to have mild decrease in her platelets, also likely the result of excess alcohol intake, no evidence of cholelithiasis Lab and imaging findings were discussed at patient bedside, including elevated blood alcohol level, she was somewhat surprised to hear that her blood alcohol was that high but she does admit to binge drinking over the past 2 weeks, she states that she is already discussed it with her male toll line repairer who is in the room with her and she plans on quitting drinking completely, prior to 2 weeks ago she was more of a sporadic drinker and does not feel as though she may have any problems with withdrawal from alcohol, however she was offered a prescription for Librium, as well as Phenergan and information for follow-up for detox or rehab should she feel it necessary, she was also advised that she can return at anytime for additional assistance, patient and significant other acknowledge understanding and agreement with this plan 08/17/17 22:38 Patient did report feeling better and ready to go home at this time of discharge - Vital Signs Vital signs: Temp Pulse Resp BP Pulse Ox 97.6 F 89 20 130/77 H 96 08/17/17 22:30 08/17/17 22:30 08/17/17 13:33 08/17/17 22:30 08/17/17 13:33 - Laboratory Result Diagrams: 08/17/17 14:35 08/17/17 16:33 Laboratory results interpreted by me: 08/17/17 08/17/17 08/17/17 14:35 14:35 16:33 MCH 34.2 H Plt Count 141 L Seg Neutrophils % 37.5 L Lymphocytes % 49.9 H Basophils % 2.2 H Absolute Neutrophils 1.5 L Glucose 133 H Calcium 8.1 L Total Bilirubin 2.8 H Direct Bilirubin 0.8 H AST 202 H ALT 75 H Lipase 458.2 H Urine Protein 30 H Urine Blood SMALL H Serum Alcohol 08/17/17 16:33 MCH Plt Count Seg Neutrophils % Lymphocytes % Basophils % Absolute Neutrophils Glucose Calcium Total Bilirubin Direct Bilirubin AST ALT Lipase Urine Protein Urine Blood Serum Alcohol 364 H* - Diagnostic Test Radiology reviewed: Image reviewed, Reports reviewed Discharge - Discharge Clinical Impression: Liver enzyme elevation Alcohol intoxication Qualifiers: Complication of substance-induced condition: uncomplicated Qualified Code(s): F10.920 - Alcohol use, unspecified with intoxication, uncomplicated Nausea and vomiting Qualifiers: Vomiting type: unspecified Vomiting Intractability: non-intractable Qualified Code(s): R11.2 - Nausea with vomiting, unspecified Condition: Stable Disposition: HOME, SELF-CARE Instructions: Abdominal Pain ([facility]), Acute Alcohol Intoxication ([facility]), Alcoholic Hepatitis ([facility]), Alcohol Withdrawl ([facility]), Antinausea Medication ([facility]) , Liver Function Abnormality ([facility]), Vomiting ([facility]) Additional Instructions: Follow up with your primary care provider in one to 2 days. Return to the emergency room immediately if symptoms worsen or any additional concerns. Follow-up with your primary care provider in one week's time for repeat blood work to ensure that your liver enzymes are improving. Stop drinking alcohol! Prescriptions: Chlordiazepoxide HCl [Librium 25 mg Capsule] 50 mg PO TIDP PRN #20 capsule PRN Reason: Promethazine HCl [Phenergan 25 mg Tablet] 25 - 50 mg PO ASDIR PRN #12 tablet PRN Reason:
[2017-08-17 17:07] LABS: ALANINE AMINOTRANSFERASE 75 U/L (9-52); ALBUMIN 4.1 g/dL (3.5-5.0); ALKALINE PHOSPHATASE 106 U/L (38-126); ANION GAP 17 (5-19); ASPARTATE AMINO TRANSFERASE 202 U/L (14-36); BILIRUBIN,DIRECT 0.8 mg/dL (0.0-0.4); BILIRUBIN,TOTAL 2.8 mg/dL (0.2-1.3); BLOOD UREA NITROGEN 8 mg/dL (7-20); CALCIUM 8.1 mg/dL (8.4-10.2); CARBON DIOXIDE 24 mmol/L (22-30); CHLORIDE 103 mmol/L (98-107); CREATININE RESULT 0.68 mg/dL (0.52-1.25); GLUCOSE 133 mg/dL (75-110); LIPASE 458.2 U/L (23-300); TOTAL PROTEIN 7.1 g/dL (6.3-8.2)
--- NOTE | 2017-08-17 18:45 | RADIOLOGY REPORT (SQ) ---
EXAM DESCRIPTION: U/S ABDOMEN LIMITED W/O DOP COMPLETED DATE/TIME: 08/17/2017 6:31 pm REASON FOR STUDY: pain COMPARISON: None. TECHNIQUE: Dynamic and static grayscale images acquired of the abdomen and recorded on PACS. Additio nal selected color Doppler and spectral images recorded. LIMITATIONS: None. FINDINGS: PANCREAS: Normal. The tail was not well seen. LIVER: 14.7 cm. Normal echotexture. LIVER VASCULATURE: Normal directional flow of the main portal vein and hepatic veins. GALLBLADDER: No stones. Normal wall thickness. No pericholecystic fluid. ULTRASOUND-DETECTED KINCAID'S SIGN: Negative. INTRAHEPATIC DUCTS AND COMMON DUCT: CBD and intrahepatic ducts normal caliber. No filling defects. INFERIOR VENA CAVA: Normal flow. AORTA: No aneurysm. RIGHT KIDNEY: Normal size, 11.6 cm. Normal echogenicity. No solid or suspicious masses. No hydroneph rosis. No calcifications. PERITONEAL AND RIGHT PLEURAL SPACE: No ascites or effusions. OTHER: No other significant findings. IMPRESSION: NORMAL RIGHT UPPER QUADRANT ULTRASOUND. TECHNICAL DOCUMENTATION: JOB ID: [id number]- All Rights Reserved
[2017-08-17 18:47] LABS: URINE BARBITURATES SCREEN NEGATIVE; URINE METHADONE SCREEN NEGATIVE; URINE OPIATES LOW NEGATIVE; URINE PHENCYCLIDINE SCREEN NEGATIVE
[2017-08-17] MEDS ORDERED: LORAZEPAM INJ 2 MG/1 ML VIAL IV ONE (22:10)
[2017-08-17] MEDS ORDERED: ONDANSETRON ODT 4 MG TAB (6 TAB/DSPK) PO PRN (22:12)
[2017-08-17 22:31] VITALS: BP 130/77
== END 2017-08-17 22:31 | disposition home or self-care (01) ==
LOC: ER 13:22
DX: F10.920 Alcohol use, unspecified with intoxication, uncomplicated (principal); R11.2 Nausea with vomiting, unspecified; R30.0 Dysuria; R74.8 Abnormal levels of other serum enzymes; R10.9 Unspecified abdominal pain; I10 Essential (primary) hypertension; Z87.442 Personal history of urinary calculi
CPT/HCPCS: 96376; 99284; 96361; 96374; 96375; 36415; 80307 ×2; 83690; 85025; 81025; 80053; 81001; 74022; 76705; J1885; J2405; J7030; S0028

== ENCOUNTER 2017-09-13 12:56 | Emergency (ER) | payer SELFPAY ==
--- NOTE | 2017-09-13 13:16 | ER Document Report ---
ED Medical Screen (RME) - General Chief Complaint: Abdominal Pain Stated Complaint: ABDOMINAL PAIN Time Seen by Provider: 09/13/17 13:09 Notes: The patient is a 37-year-old female, past medical history prior heavy alcohol drinker (last drink 1 month ago), presents with intermittent nausea, intermittent sharp abdominal cramping and blood in her stool. She is also feeling lightheaded. PE: Normal bowel sounds. Non-tender abdomen. I have greeted and performed a rapid initial assessment of this patient. A comprehensive ED assessment and evaluation of the patient, analysis of test results and completion of the medical decision making process will be conducted by additional ED providers. TRAVEL OUTSIDE OF THE [place] IN LAST 30 DAYS: No - Related Data Allergies/Adverse Reactions: valacyclovir [From Valtrex] Allergy (Verified 09/13/17 13:07) Home Medications: Current Home Medications Prazosin HCl 1 mg PO QHS 09/13/17 [History] Past Medical History - Social History Frequency of alcohol use: Occasional Drug Abuse: None - Past Medical History Cardiac Medical History: Reports: Hx Hypertension Renal/ Medical History: Reports: Hx Kidney Stones, Hx Ovarian Cysts. Denies: Hx Peritoneal Dialysis GI Medical History: Reports: Hx Gastroesophageal Reflux Disease. Denies: Hx Gastritis Psychiatric Medical History: Reports: Hx Anxiety, Hx Attention Deficit Hyperactivity Disorder Past Surgical History: Reports: Hx Kidney (Renal Surgery) - lithotripsy, Hx Oral Surgery, Hx Orthopedic Surgery - L elbow bone graft, Hx Tonsillectomy - Immunizations Immunizations up to date: Yes Hx Diphtheria, Pertussis, Tetanus Vaccination: Yes Physical Exam - Vital signs Vitals: Temp Pulse Resp BP Pulse Ox 98.1 F 65 14 103/61 100 09/13/17 13:02 09/13/17 13:02 09/13/17 13:02 09/13/17 13:02 09/13/17 13:02 Course - Vital Signs Vital signs: Temp Pulse Resp BP Pulse Ox 98.1 F 65 14 103/61 100 09/13/17 13:02 09/13/17 13:02 09/13/17 13:02 09/13/17 13:02 09/13/17 13:02
[2017-09-13 13:48] LABS: ABSOLUTE BASOPHILS # (AUTO) 0.1 10^3/uL (0.0-0.2); ABSOLUTE EOSINOPHILS # (AUTO) 0.3 10^3/uL (0.0-0.6); RED CELL DISTRIBUTION WIDTH 13.3 % (11.5-14.0)
[2017-09-13 13:52] LABS: PROTHROMBIN TIME 12.1 SEC (11.4-15.4)
[2017-09-13 13:53] LABS: ABSOLUTE LYMPHOCYTES (AUTO) 2.2 10^3/uL (0.5-4.7); ABSOLUTE MONOCYTES (AUTO) 0.8 10^3/uL (0.1-1.4); ABSOLUTE NEUT (AUTO) 2.7 10^3/uL (1.7-8.2); BASOPHILS % (AUTO) 2.3 % (0-2); EOSINOPHILS % (AUTO) 4.3 % (0-6); HEMATOCRIT 35.7 % (36.0-47.0); HEMOGLOBIN 11.9 g/dL (12.0-15.5); LYMPHOCYTES % (AUTO) 36.5 % (13-45); MEAN CORPUSCULAR HEMOGLOBIN 33.3 pg (27.0-33.4); MEAN CORPUSCULAR HGB CONC 33.2 g/dL (32.0-36.0); MONOCYTES % (AUTO) 12.4 % (3-13); PARTIAL THROMBOPLASTIN TIME 36.3 SEC (23.5-35.8); RED BLOOD COUNT 3.56 10^6/uL (3.72-5.28); SEGMENTED NEUTROPHILS % (AUTO) 44.5 % (42-78); WHITE BLOOD COUNT 6.1 10^3/uL (4.0-10.5)
[2017-09-13 13:54] LABS: MEAN CORPUSCULAR VOLUME 100 fl (80-97)
[2017-09-13 13:57] LABS: APPEARANCE,URINE SLIGHTLY-CLOUDY; BILIRUBIN,URINE NEGATIVE (NEGATIVE); GLUCOSE, URINE NEGATIVE (NEGATIVE); KETONES,URINE NEGATIVE (NEGATIVE); LEUKOCYTE ESTERASE,URINE NEGATIVE (NEGATIVE); NITRITE,URINE NEGATIVE (NEGATIVE); PROTEIN,URINE NEGATIVE (NEGATIVE); URINE SPECIFIC GRAVITY 1.012; UROBILINOGEN,URINE NEGATIVE mg/dL (<2.0)
[2017-09-13 14:06] LABS: ALANINE AMINOTRANSFERASE 38 U/L (9-52); ALBUMIN 4.2 g/dL (3.5-5.0); ALKALINE PHOSPHATASE 48 U/L (38-126); ANION GAP 10 (5-19); ASPARTATE AMINO TRANSFERASE 27 U/L (14-36); BILIRUBIN,DIRECT 0.4 mg/dL (0.0-0.4); BILIRUBIN,TOTAL 0.5 mg/dL (0.2-1.3); BLOOD UREA NITROGEN 9 mg/dL (7-20); CALCIUM 9.5 mg/dL (8.4-10.2); CARBON DIOXIDE 25 mmol/L (22-30); CHLORIDE 104 mmol/L (98-107); CREATININE RESULT 0.75 mg/dL (0.52-1.25); GLUCOSE 80 mg/dL (75-110); POTASSIUM 4.8 mmol/L (3.6-5.0); SODIUM 138.8 mmol/L (137-145); TOTAL PROTEIN 7.1 g/dL (6.3-8.2)
[2017-09-13] MEDS ORDERED: ONDANSETRON HCL 8 MG TABLET PO ONE (14:18)
[2017-09-13] MEDS ORDERED: MORPHINE SULFATE 10 MG/ML INJ IV ONE (14:18)
--- NOTE | 2017-09-13 14:25 | ER Document Report ---
ED GI/ - General Chief Complaint: Abdominal Pain Stated Complaint: ABDOMINAL PAIN Time Seen by Provider: 09/13/17 13:09 TRAVEL OUTSIDE OF THE [place] IN LAST 30 DAYS: No - HPI Notes: 09/13/17 14:20 37 years old female with a history of alcoholic hepatitis, WPW, presents today with diffuse abdominal pain. She states she was given some Ativan a few days ago in the ER which is not helping her. She also has stopped drinking according to her. She also noted some blood stained stool this morning. Denied any nausea vomiting. Denied any fever chills or other constitutional symptoms. - Related Data Allergies/Adverse Reactions: valacyclovir [From Valtrex] Allergy (Verified 09/13/17 13:07) Home Medications: Current Home Medications Prazosin HCl 1 mg PO QHS 09/13/17 [History] Past Medical History - General Information source: Patient - Social History Smoking Status: Former Smoker Cigarette use (# per day): No Frequency of alcohol use: Occasional Drug Abuse: None Family History: Reviewed & Not Pertinent Patient has suicidal ideation: No Patient has homicidal ideation: No - Past Medical History Cardiac Medical History: Reports: Hx Hypertension Renal/ Medical History: Reports: Hx Kidney Stones, Hx Ovarian Cysts. Denies: Hx Peritoneal Dialysis GI Medical History: Reports: Hx Gastroesophageal Reflux Disease. Denies: Hx Gastritis Psychiatric Medical History: Reports: Hx Anxiety, Hx Attention Deficit Hyperactivity Disorder Past Surgical History: Reports: Hx Kidney (Renal Surgery) - lithotripsy, Hx Oral Surgery, Hx Orthopedic Surgery - L elbow bone graft, Hx Tonsillectomy - Immunizations Immunizations up to date: Yes Hx Diphtheria, Pertussis, Tetanus Vaccination: Yes Review of Systems - Review of Systems Constitutional: No symptoms reported. denies: See HPI, Chills, Diaphoresis, Fever, Malaise, Weakness, Other, Weight gain, Weight loss, Recent illness EENT: No symptoms reported. denies: See HPI, Eye pain, Eye discharge, Blurred vision, Tearing, Double vision, Ear pain, Ear discharge, Nose pain, Nose congestion, Nose discharge, Sinus pressure, Sinus discharge, Throat pain, Difficulty swallowing, Throat swelling, Mouth pain, Mouth swelling, Dental problem, Vertigo, Other Cardiovascular: No symptoms reported. denies: See HPI, Chest pain, Palpitations , Heart racing, Orthopnea, Dyspnea, Syncope, Dizziness, Lightheaded, Edema, Other, Paroxysmal Nocturnal Dysp Respiratory: No symptoms reported. denies: See HPI, Cough, Hurts to breathe, Hemoptysis, Short of breath, Sputum, Stridor, Wheezing, Other Gastrointestinal: See HPI Genitourinary: No symptoms reported. denies: See HPI, Burning, Dysuria, Discharge, Frequency, Flank pain, Hematuria, Incontinence, Pain, Urgency, Retention, Other Skin: No symptoms reported. denies: See HPI, Change in color, Change in hair/ nails, Dryness, Lesions, Lumps, Rash, Other Physical Exam - Vital signs Vitals: Temp Pulse Resp BP Pulse Ox 98.1 F 65 14 103/61 100 09/13/17 13:02 09/13/17 13:02 09/13/17 13:02 09/13/17 13:02 09/13/17 13:02 - Notes Notes: General exam: Alert oriented 3, appears well, not in any acute distress, body habitus--- appear to be moderate discomfort. ---. HEENT: Normocephalic atraumatic pupils were equal reactive to light extraocular muscles were within normal range. Neck is supple no JVD no lymphadenopathy. Oral mucosa-not erythematous, no lesions noted no tonsillar enlargement. Chest no lesions, nontraumatic, nontender. No deformity Lungs: Bilaterally clear breath sounds no rales or wheezing, no adventitial sounds, no dullness on percussion. Cardiovascular system: Normal S1-S2 no murmurs, no gallop. Regular rhythm. No peripheral edema over the lower extremities. Gastrointestinal: Normal appearance, diffuse abdominal tenderness no rebound tenderness or guarding positive bowel sounds in all 4 quadrants, no Hepatosplenomegaly, no obvious masses, no obvious abdominal bruit. No horseshoe dullness. Inguinal region: No masses or obvious inguinal hernia noted Genitourinary: Rectal exam: Nervous system: Alert oriented 3, no cranial nerve weakness, no focal neurological deficit noted. Sensation is intact over the lower extremities for pain and touch. Reflexes are 2+ over both patella. Upper extremities: No trauma as noted, normal range of motion for both shoulders, elbows and wrist. Lower extremity: No traumas or deformities noted, normal range of motion for flexion extension abduction abduction of both hip joints, Normal flexion and extension of knee joint. Normal range of motion for plantarflexion dorsiflexion and eversion inversion for both ankles. Skin: No erythema, no edema, no obvious lesions noted Course - Vital Signs Vital signs: Temp Pulse Resp BP Pulse Ox 98.1 F 65 14 103/61 100 09/13/17 13:02 09/13/17 13:02 09/13/17 13:02 09/13/17 13:02 09/13/17 13:02 - Laboratory Result Diagrams: 09/13/17 13:31 09/13/17 13:31 Laboratory results interpreted by me: 09/13/17 09/13/17 09/13/17 13:23 13:31 13:31 RBC 3.56 L Hgb 11.9 L Hct 35.7 L MCV 100 H Basophils % 2.3 H APTT 36.3 H Urine Ascorbic Acid 40 H - Diagnostic Test Radiology results interpreted by me: 09/13/17 16:28 Diagnostic report text EXAM DESCRIPTION: KUB/ABDOMEN (SINGLE VIEW) COMPLETED DATE/TIME: 09/13/2017 3:28 pm REASON FOR STUDY: Abdominal pain abdominal COMPARISON: 08/17/2017. NUMBER OF VIEWS: One view. TECHNIQUE: Supine radiographic image of the abdomen acquired. LIMITATIONS: None. FINDINGS: BOWEL GAS PATTERN: Normal bowel gas pattern. No dilated loops. Large amount stool throughout the colon. CALCIFICATIONS: No suspicious calcifications. SOFT TISSUES: No gross mass or suggestion of organomegaly. HARDWARE: IUD. BONES: No acute fracture. No worrisome bone lesions. OTHER: No other significant finding. IMPRESSION: NO RADIOGRAPHIC EVIDENCE FOR ACUTE ABDOMINAL DISEASE. THERE IS A LARGE AMOUNT OF STOOL CONSISTENT WITH CONSTIPATION. TECHNICAL DOCUMENTATION: JOB ID: [id number]- All Rights Reserved Dictated by: CHARMAINE CARDENAS MD [id number] CC: TITI DAVEY MD Discharge - Discharge Clinical Impression: Abdominal pain Qualifiers: Abdominal location: generalized Qualified Code(s): R10.84 - Generalized abdominal pain Constipation Qualifiers: Constipation type: chronic idiopathic constipation Qualified Code(s): K59.04 - Chronic idiopathic constipation Instructions: Abdominal Pain ([facility]), Bulk Laxatives Prescriptions: Dicyclomine HCl [Bentyl 10 mg Capsule] 1 cap PO TID #30 cap Lactulose 20 gm PO BID #120 ml
--- NOTE | 2017-09-13 15:42 | RADIOLOGY REPORT (SQ) ---
EXAM DESCRIPTION: KUB/ABDOMEN (SINGLE VIEW) COMPLETED DATE/TIME: 09/13/2017 3:28 pm REASON FOR STUDY: Abdominal pain abdominal COMPARISON: 08/17/2017. NUMBER OF VIEWS: One view. TECHNIQUE: Supine radiographic image of the abdomen acquired. LIMITATIONS: None. FINDINGS: BOWEL GAS PATTERN: Normal bowel gas pattern. No dilated loops. Large amount stool through out the colon. CALCIFICATIONS: No suspicious calcifications. SOFT TISSUES: No gross mass or suggestion of organomegaly. HARDWARE: IUD. BONES: No acute fracture. No worrisome bone lesions. OTHER: No other significant finding. IMPRESSION: NO RADIOGRAPHIC EVIDENCE FOR ACUTE ABDOMINAL DISEASE. THERE IS A LARGE AMOUNT OF STOOL CONSISTENT WITH CONSTIPATION. TECHNICAL DOCUMENTATION: JOB ID: [id number] [employer]- All Rights Reserved
[2017-09-13 17:45] VITALS: BP 103/64
== END 2017-09-13 17:45 | disposition home or self-care (01) ==
LOC: ER 12:56
DX: K59.04 Chronic idiopathic constipation (principal); R10.84 Generalized abdominal pain; K70.10 Alcoholic hepatitis without ascites; F10.10 Alcohol abuse, uncomplicated; R19.5 Other fecal abnormalities; Z87.891 Personal history of nicotine dependence; Z79.899 Other long term (current) drug therapy
CPT/HCPCS: 99284; 96374; 36415; 83690; 84703; 85025; 85610; 85730; 81025; 80053; 81001; 74000; J2270; S0119

== ENCOUNTER 2018-07-12 10:43 | Emergency (ER) | payer SELFPAY ==
--- NOTE | 2018-07-12 11:16 | ER Document Report ---
ED Medical Screen (RME) - General Chief Complaint: Pain All Over Stated Complaint: CHEST PAIN Time Seen by Provider: 07/12/18 11:09 Notes: 37-year-old female patient complains of 2-week history of generalized abdominal pain that is getting worse. She has had nausea vomiting, no diarrhea which she states is because she cannot keep anything down. She also has pain in her left elbow and left knee and some chest wall pain. No definite fever, but has felt hot and cold. She does have the Mirena IUD. She has a past history of von Willebrand's, and alcoholic hepatitis. I have greeted and performed a rapid initial assessment of this patient. A comprehensive ED assessment and evaluation of the patient, analysis of test results and completion of the medical decision making process will be conducted by additional ED providers. TRAVEL OUTSIDE OF THE [place] IN LAST 30 DAYS: No - Related Data Allergies/Adverse Reactions: valacyclovir [From Valtrex] Allergy (Verified 07/12/18 10:54) Past Medical History - Social History Chew tobacco use (# tins/day): No Frequency of alcohol use: Social Drug Abuse: Marijuana - Past Medical History Cardiac Medical History: Reports: Hx Hypertension Renal/ Medical History: Reports: Hx Kidney Stones, Hx Ovarian Cysts. Denies: Hx Peritoneal Dialysis GI Medical History: Reports: Hx Gastroesophageal Reflux Disease. Denies: Hx Gastritis Psychiatric Medical History: Reports: Hx Anxiety, Hx Attention Deficit Hyperactivity Disorder Past Surgical History: Reports: Hx Kidney (Renal Surgery) - lithotripsy, Hx Oral Surgery, Hx Orthopedic Surgery - L elbow bone graft, Hx Tonsillectomy - Immunizations Immunizations up to date: Yes Hx Diphtheria, Pertussis, Tetanus Vaccination: Yes Physical Exam - Vital signs Vitals: Temp Pulse Resp BP Pulse Ox 98.6 F 98 20 152/101 H 100 07/12/18 11:01 07/12/18 11:01 07/12/18 11:01 07/12/18 11:01 07/12/18 11:01 Course - Vital Signs Vital signs: Temp Pulse Resp BP Pulse Ox 98.6 F 98 20 152/101 H 100 07/12/18 11:01 07/12/18 11:01 07/12/18 11:01 07/12/18 11:01 07/12/18 11:01
[2018-07-12] MEDS ORDERED: ONDANSETRON 4 MG TAB.RAPDIS PO ONE ×2 (11:17→14:06)
[2018-07-12] MEDS ORDERED: MAG HYDROX/AL HYDROX/SIMETH SUSP 30 ML UDCUP PO ONE (11:46)
[2018-07-12] MEDS ORDERED: LIDOCAINE 2% VISCOUS SOLN 20 ML UDCUP PO ONE (11:46)
[2018-07-12] MEDS ORDERED: METOCLOPRAMIDE HCL ORAL SOLN 10 MG/10 ML UDCUP PO ONE (11:46)
--- NOTE | 2018-07-12 11:50 | ER Document Report ---
ED General - General Chief Complaint: Pain All Over Stated Complaint: CHEST PAIN Time Seen by Provider: 07/12/18 11:09 Mode of Arrival: Ambulatory Information source: Patient, [facility] Records Notes: 37-year-old female hypertension, von Willebrand's disease, alcohol induced hepatitis, anxiety presents with complaint of 2-week history of generalized abdominal pain that has worsened over the last few days. She has had nausea vomiting, no diarrhea which she states is because she cannot keep anything down. Patient also complaining of generalized pain. She admits to chills and sweats. She denies chance of , sick contacts, recent antibiotic use, recent travel. She states that she used to be a heavy drinker but has not drank in several months. She does admit to marijuana use. TRAVEL OUTSIDE OF THE [place] IN LAST 30 DAYS: No - HPI Onset: Other Onset/Duration: Gradual, Persistent Quality of pain: Burning Severity: Mild Associated symptoms: Body/muscle aches, Chest pain, Chills, Nausea, Vomiting, Sweating. denies: Diarrhea Exacerbated by: Food Relieved by: Denies Similar symptoms previously: No Recently seen / treated by doctor: No - Related Data Allergies/Adverse Reactions: valacyclovir [From Valtrex] Allergy (Verified 07/12/18 10:54) cayden Adverse Reaction (Verified 07/12/18 11:46) Past Medical History - General Information source: Patient, [facility] Records - Social History Smoking Status: Current Every Day Smoker Cigarette use (# per day): Yes - 10 Chew tobacco use (# tins/day): No Smoking Education Provided: Yes - Smoking cessation counseling was provided for 4 minutes at the bedside Frequency of alcohol use: Social Drug Abuse: Marijuana Family History: Reviewed & Not Pertinent Patient has suicidal ideation: No Patient has homicidal ideation: No - Past Medical History Cardiac Medical History: Reports: Hx Hypertension Renal/ Medical History: Reports: Hx Kidney Stones, Hx Ovarian Cysts. Denies: Hx Peritoneal Dialysis GI Medical History: Reports: Hx Gastroesophageal Reflux Disease. Denies: Hx Gastritis Psychiatric Medical History: Reports: Hx Anxiety, Hx Attention Deficit Hyperactivity Disorder Past Surgical History: Reports: Hx Kidney (Renal Surgery) - lithotripsy, Hx Oral Surgery, Hx Orthopedic Surgery - L elbow bone graft, Hx Tonsillectomy - Immunizations Immunizations up to date: Yes Hx Diphtheria, Pertussis, Tetanus Vaccination: Yes Review of Systems - Review of Systems Constitutional: Chills EENT: denies: Throat pain Cardiovascular: Chest pain Respiratory: denies: Cough, Short of breath Gastrointestinal: Abdominal pain, Nausea, Vomiting, Poor appetite. denies: Blood streaked bowels, Black stools Genitourinary: Flank pain, Hematuria. denies: Dysuria, Discharge Female Genitourinary: denies: , Vaginal discharge, Vaginal bleeding, Vaginal odor Musculoskeletal: Back pain, Muscle pain Skin: denies: Rash Hematologic/Lymphatic: denies: Easy bleeding Neurological/Psychological: Other - Tearful, anxious. denies: Confusion, Headaches Physical Exam - Vital signs Vitals: Temp Pulse Resp BP Pulse Ox 98.5 F 81 16 147/95 H 100 07/12/18 11:00 07/12/18 11:00 07/12/18 11:00 07/12/18 11:00 07/12/18 11:00 - Notes Notes: PHYSICAL EXAMINATION: GENERAL: Ill-appearing, tearful, appears to be in significant pain. HEAD: Atraumatic, normocephalic. EYES: Pupils equal round and reactive to light, extraocular movements intact, conjunctiva are normal. ENT: Nares patent, oropharynx clear without exudates. Moist mucous membranes. NECK: Normal range of motion, supple without lymphadenopathy LUNGS: Breath sounds clear to auscultation bilaterally and equal. No wheezes rales or rhonchi. HEART: Regular rate and rhythm without murmurs ABDOMEN: Epigastric abdominal tenderness no guarding, no rebound. No masses appreciated. Female : deferred Musculoskeletal: Normal range of motion, no pitting or edema. No cyanosis. NEUROLOGICAL: Cranial nerves grossly intact. Normal speech, normal gait. Normal sensory, motor exams PSYCH: Tearful, anxious SKIN: Warm, Dry, normal turgor, no rashes or lesions noted. Course - Re-evaluation Re-evalutation: Laboratory 07/12/18 07/12/18 07/12/18 11:20 11:20 11:20 WBC 8.5 RBC 4.25 Hgb 16.2 H Hct 46.9 MCV 111 H MCH 38.1 H MCHC 34.4 RDW 14.5 H Plt Count 198 Seg Neutrophils % 76.1 Lymphocytes % 13.3 Monocytes % 7.7 Eosinophils % 1.9 Basophils % 1.0 Absolute Neutrophils 6.5 Absolute Lymphocytes 1.1 Absolute Monocytes 0.7 Absolute Eosinophils 0.2 Absolute Basophils 0.1 Platelet Comment ADEQUATE Poikilocytosis 2+ Anisocytosis SLIGHT Macrocytosis 3+ Stomatocytes 2+ ESR 2 Sodium 137.7 Potassium 4.6 Chloride 98 Carbon Dioxide 23 Anion Gap 17 BUN 8 Creatinine 0.63 Est GFR ( Amer) > 60 Est GFR (Non-Af Amer) > 60 Glucose 85 Calcium 10.5 H Magnesium 1.5 L Total Bilirubin 8.5 H Direct Bilirubin 2.8 H Neonat Total Bilirubin Not Reportable Neonat Direct Bilirubin Not Reportable Neonat Indirect Bili Not Reportable AST 250 H ALT 109 H Alkaline Phosphatase 107 Creatine Kinase 21 L Total Protein 9.1 H Albumin 5.0 Lipase 95.8 Urine Color DARK YELLOW Urine Appearance SLIGHTLY-CLOUDY Urine pH 6.0 Ur Specific [place] 1.011 Urine Protein NEGATIVE Urine Glucose (UA) NEGATIVE Urine Ketones 80 H Urine Blood NEGATIVE Urine Nitrite NEGATIVE Urine Bilirubin NEGATIVE Urine Urobilinogen 4.0 H Ur Leukocyte Esterase NEGATIVE Urine WBC (Auto) 5 Urine RBC (Auto) 1 U Hyaline Cast (Auto) 5 Urine Bacteria (Auto) TRACE Squamous Epi Cells Auto 16 Urine Mucus (Auto) RARE Urine Ascorbic Acid NEGATIVE Urine HCG, Qual Urine Opiates Screen Urine Methadone Screen Acetaminophen Ur Barbiturates Screen Ur Phencyclidine Scrn Ur Amphetamines Screen U Benzodiazepines Scrn Urine Cocaine Screen U Marijuana (THC) Screen Serum Alcohol 07/12/18 07/12/18 07/12/18 11:20 11:20 11:20 WBC RBC Hgb Hct MCV MCH MCHC RDW Plt Count Seg Neutrophils % Lymphocytes % Monocytes % Eosinophils % Basophils % Absolute Neutrophils Absolute Lymphocytes Absolute Monocytes Absolute Eosinophils Absolute Basophils Platelet Comment Poikilocytosis Anisocytosis Macrocytosis Stomatocytes ESR Sodium Potassium Chloride Carbon Dioxide Anion Gap BUN Creatinine Est GFR ( Amer) Est GFR (Non-Af Amer) Glucose Calcium Magnesium Total Bilirubin Direct Bilirubin Neonat Total Bilirubin Neonat Direct Bilirubin Neonat Indirect Bili AST ALT Alkaline Phosphatase Creatine Kinase Total Protein Albumin Lipase Urine Color Urine Appearance Urine pH Ur Specific [place] Urine Protein Urine Glucose (UA) Urine Ketones Urine Blood Urine Nitrite Urine Bilirubin Urine Urobilinogen Ur Leukocyte Esterase Urine WBC (Auto) Urine RBC (Auto) U Hyaline Cast (Auto) Urine Bacteria (Auto) Squamous Epi Cells Auto Urine Mucus (Auto) Urine Ascorbic Acid Urine HCG, Qual NEGATIVE Urine Opiates Screen NEGATIVE Urine Methadone Screen NEGATIVE Acetaminophen < 10 L Ur Barbiturates Screen NEGATIVE Ur Phencyclidine Scrn NEGATIVE Ur Amphetamines Screen NEGATIVE U Benzodiazepines Scrn NEGATIVE Urine Cocaine Screen NEGATIVE U Marijuana (THC) Screen UNCONFIRMED POSITIVE Serum Alcohol < 10 Abdomen Ultrasound 07/12/18 11:48 IMPRESSION: No evidence of cholelithiasis. Limited or Localized CT 07/12/18 11:48 IMPRESSION: No acute findings. Cholelithiasis. Fatty liver. 07/12/18 15:30 I spoke to the transfer center at [facility] who states they do not have ERCP coverage at this time. Spoke to transfer center at [facility] who will call me back with the hospitalist. 07/12/18 18:03 Patient was accepted by Dr. Noe Griffin hospitalist at [facility] for admission to [facility]. 37-year-old female presents with generalized abdominal pain, nausea, vomiting. Vital signs reviewed upon arrival. Patient is hypertensive likely secondary to pain but afebrile and not tachycardic. She appears ill but not toxic or dehydrated. Exam is significant for generalized abdominal pain greater in the epigastric and right upper quadrant. Patient received multiple rounds of IV pain medications as well as IV fluids and Zofran. Significant findings include elevated liver enzymes and a markedly elevated direct and total bilirubin. Ultrasound showed no evidence of cholelithiasis but CT did show cholelithiasis as well as fatty liver. CBC is without leukocytosis or anemia. BMP shows no electrolyte abnormalities. MRCP pending. Concern is for a stone in the common bile duct. Patient will need GI consultation which is not available at this facility at this time. Patient has remained stable throughout her ED course. She is in agreement with transfer. - Vital Signs Vital signs: Temp Pulse Resp BP Pulse Ox 98.5 F 81 16 147/95 H 100 07/12/18 17:14 07/12/18 17:14 07/12/18 17:14 07/12/18 17:14 07/12/18 17:14 - Laboratory Result Diagrams: 07/12/18 11:20 07/12/18 11:20 Laboratory results interpreted by me: 07/12/18 07/12/18 07/12/18 11:20 11:20 11:20 Hgb 16.2 H MCV 111 H MCH 38.1 H RDW 14.5 H Calcium 10.5 H Magnesium 1.5 L Total Bilirubin 8.5 H Direct Bilirubin 2.8 H AST 250 H ALT 109 H Creatine Kinase 21 L Total Protein 9.1 H Urine Ketones 80 H Urine Urobilinogen 4.0 H Acetaminophen 07/12/18 11:20 Hgb MCV MCH RDW Calcium Magnesium Total Bilirubin Direct Bilirubin AST ALT Creatine Kinase Total Protein Urine Ketones Urine Urobilinogen Acetaminophen < 10 L - Diagnostic Test Radiology reviewed: Image reviewed, Reports reviewed Discharge - Discharge Clinical Impression: Elevated liver enzymes, Total bilirubin, elevated, Elevated direct bilirubin, Fatty liver, Choledocholithiasis-suspected, Cholelithiasis without cholecystitis Abdominal pain Qualifiers: Abdominal location: upper abdomen, unspecified Qualified Code(s): R10.10 - Upper abdominal pain, unspecified Condition: Good Disposition: [facility]
[2018-07-12] MEDS ORDERED: HYDROMORPHONE HCL INJ/PF 2 MG/ML AMPULE IV ONE (11:52)
[2018-07-12] MEDS ORDERED: NORMAL SALINE 1000 ML 1,000 ML IV ONE (11:52)
[2018-07-12 11:53] LABS: ABSOLUTE BASOPHILS # (AUTO) 0.1 10^3/uL (0.0-0.2); ABSOLUTE EOSINOPHILS # (AUTO) 0.2 10^3/uL (0.0-0.6); ABSOLUTE LYMPHOCYTES (AUTO) 1.1 10^3/uL (0.5-4.7); ABSOLUTE MONOCYTES (AUTO) 0.7 10^3/uL (0.1-1.4); ABSOLUTE NEUT (AUTO) 6.5 10^3/uL (1.7-8.2); EOSINOPHILS % (AUTO) 1.9 % (0-6); HEMATOCRIT 46.9 % (36.0-47.0); HEMOGLOBIN 16.2 g/dL (12.0-15.5); LYMPHOCYTES % (AUTO) 13.3 % (13-45); MEAN CORPUSCULAR HEMOGLOBIN 38.1 pg (27.0-33.4); MEAN CORPUSCULAR HGB CONC 34.4 g/dL (32.0-36.0); MONOCYTES % (AUTO) 7.7 % (3-13); PLATELET COUNT 198 10^3/uL (150-450); RED BLOOD COUNT 4.25 10^6/uL (3.72-5.28); RED CELL DISTRIBUTION WIDTH 14.5 % (11.5-14.0); SEGMENTED NEUTROPHILS % (AUTO) 76.1 % (42-78); TOTAL CELLS COUNTED % (AUTO) 100 %; WHITE BLOOD COUNT 8.5 10^3/uL (4.0-10.5)
[2018-07-12 11:55] LABS: MEAN CORPUSCULAR VOLUME 111 fl (80-97)
[2018-07-12 11:56] LABS: APPEARANCE,URINE SLIGHTLY-CLOUDY; BILIRUBIN,URINE NEGATIVE (NEGATIVE); GLUCOSE, URINE NEGATIVE (NEGATIVE); KETONES,URINE 80 mg/dL (NEGATIVE); LEUKOCYTE ESTERASE,URINE NEGATIVE (NEGATIVE); NITRITE,URINE NEGATIVE (NEGATIVE); PROTEIN,URINE NEGATIVE (NEGATIVE); URINE SPECIFIC GRAVITY 1.011
[2018-07-12 11:57] LABS: COLOR,URINE DARK YELLOW
[2018-07-12 12:11] LABS: ALANINE AMINOTRANSFERASE 109 U/L (9-52); ALKALINE PHOSPHATASE 107 U/L (38-126); ANION GAP 17 (5-19); ASPARTATE AMINO TRANSFERASE 250 U/L (14-36); BILIRUBIN,DIRECT 2.8 mg/dL (0.0-0.4); BILIRUBIN,TOTAL 8.5 mg/dL (0.2-1.3); BLOOD UREA NITROGEN 8 mg/dL (7-20); CALCIUM 10.5 mg/dL (8.4-10.2); CARBON DIOXIDE 23 mmol/L (22-30); CHLORIDE 98 mmol/L (98-107); CREATINE KINASE 21 U/L (30-135); GLUCOSE 85 mg/dL (75-110); LIPASE 95.8 U/L (23-300); POTASSIUM 4.6 mmol/L (3.6-5.0); SODIUM 137.7 mmol/L (137-145); TOTAL PROTEIN 9.1 g/dL (6.3-8.2)
[2018-07-12 12:13] LABS: ANISOCYTOSIS SLIGHT
[2018-07-12 12:14] LABS: PLATELET COMMENT ADEQUATE; POIKILOCYTOSIS 2+; STOMATOCYTES 2+
[2018-07-12 12:29] LABS: ERYTHROCYTE SEDIMENTATION RATE 2 mm/hr (0-20)
--- NOTE | 2018-07-12 13:13 | RADIOLOGY REPORT (SQ) ---
EXAM DESCRIPTION: U/S ABDOMEN LIMITED W/O DOP COMPLETED DATE/TIME: 07/12/2018 12:54 pm REASON FOR STUDY: pain rlq h/o stones COMPARISON: None. TECHNIQUE: Dynamic and static grayscale images acquired of the abdomen and recorded on PACS. Additio nal selected color Doppler and spectral images recorded. LIMITATIONS: None. FINDINGS: PANCREAS: No masses. No peripancreatic edema or fluid collections. LIVER: Echotexture is coarse with increased echogenicity consistent with fatty infiltration. LIVER VASCULATURE: Normal directional flow of the main portal vein and hepatic veins. GALLBLADDER: Small amount of sludge. No stones. Normal wall thickness. No pericholecystic fluid. ULTRASOUND-DETECTED KINCAID'S SIGN: Negative. INTRAHEPATIC DUCTS AND COMMON DUCT: CBD and intrahepatic ducts normal caliber. No filling defects. INFERIOR VENA CAVA: Normal flow. AORTA: No aneurysm. RIGHT KIDNEY: Normal size. Normal echogenicity. No solid or suspicious masses. No hydronephros is. No calcifications. PERITONEAL AND RIGHT PLEURAL SPACE: No ascites or effusions. OTHER: No other significant finding. IMPRESSION: No evidence of cholelithiasis. TECHNICAL DOCUMENTATION: JOB ID: [id number] [employer]- All Rights Reserved Reading location - IP/workstation name: [email or web address]
[2018-07-12 13:21] LABS: URINE AMPHETAMINES SCREEN NEGATIVE; URINE BARBITURATES SCREEN NEGATIVE; URINE BENZODIAZEPINES SCREEN NEGATIVE; URINE COCAINE SCREEN NEGATIVE; URINE MARIJUANA (THC) SCREEN UNCONFIRMED POSITIVE; URINE METHADONE SCREEN NEGATIVE; URINE PHENCYCLIDINE SCREEN NEGATIVE
--- NOTE | 2018-07-12 14:15 | RADIOLOGY REPORT (SQ) ---
EXAM DESCRIPTION: CT LTD RENAL STONE PROTOCOL ON COMPLETED DATE/TIME: 07/12/2018 1:57 pm REASON FOR STUDY: pain rlq h/o stones COMPARISON: 04/24/2017 TECHNIQUE: CT scan of the abdomen and pelvis performed without intravenous or oral contrast. Images reviewed with lung, soft tissue, and bone windows. Reconstructed coronal and sagittal MPR images revi ewed. All images stored on PACS. All CT scanners at this facility use dose modulation, iterative reconstruction, and/or weight based d osing when appropriate to reduce radiation dose to as low as reasonably achievable (ALARA). [facility]: Dose Right [facility]: CareDose [facility]: Dose Right [facility]: Teradose 4D [facility]: [employer] RADIATION DOSE: CT Rad equipment meets quality standard of care and radiation dose reduction techniq ues were employed. CTDIvol: 5.1 mGy. DLP: 275 mGy-cm.mGy. LIMITATIONS: None. FINDINGS: LOWER CHEST: No significant findings. No nodules or infiltrates. NON-CONTRASTED LIVER, SPLEEN, ADRENALS: Fatty liver. PANCREAS: No masses. No peripancreatic inflammatory changes. GALLBLADDER: Gallstones. No inflammatory changes to suggest cholecystitis. RIGHT KIDNEY AND URETER: No suspicious masses. Assessment limited by lack of IV contrast. No signif icant calcifications. No hydronephrosis or hydroureter. LEFT KIDNEY AND URETER: No suspicious masses. Assessment limited by lack of IV contrast. No signifi cant calcifications. No hydronephrosis or hydroureter. AORTA AND RETROPERITONEUM: No aneurysm. No retroperitoneal masses or adenopathy. BOWEL AND PERITONEAL CAVITY: No obvious masses or inflammatory changes. No free fluid. APPENDIX: Normal. PELVIS, BLADDER, AND ABDOMINAL WALL:There is an IUD in the uterus. BONES: No significant findings. OTHER: No other significant finding. IMPRESSION: No acute findings. Cholelithiasis. Fatty liver. COMMENT: Quality ID # [id number]: Final reports with documentation of one or more dose reduction techniques (e.g., Automated exposure control, adjustment of the mA and/or kV according to patient size, use of iterative reconstruction technique) TECHNICAL DOCUMENTATION: JOB ID: [id number] [employer]- All Rights Reserved Reading location - IP/workstation name: [email or web address]
[2018-07-12 14:36] LABS: ACETAMINOPHEN < 10 ug/mL (10-30); ALCOHOL < 10 mg/dL (NONE DETECTED)
[2018-07-12] MEDS ORDERED: LORAZEPAM INJ 2 MG/1 ML VIAL IV PRN (14:38)
[2018-07-12] MEDS ORDERED: ONDANSETRON HCL INJ/PF 4 MG/2 ML SDV IV PRN (14:38)
[2018-07-12] MEDS: HYDROMORPHONE HCL INJ/PF 2 MG/ML AMPULE IV PRN ×3 (16:49→22:00)
[2018-07-12 17:16] VITALS: BP 147/95
[2018-07-12] MEDS ORDERED: RINGERS SOLUTION,LACTATED 1,000 ML IV ONE (18:05)
--- NOTE | 2018-07-12 19:12 | RADIOLOGY REPORT (SQ) ---
EXAM DESCRIPTION: MRI ABDOMEN WITHOUT COMPLETED DATE/TIME: 07/12/2018 6:24 pm REASON FOR STUDY: Concern for common bile duct obstruction COMPARISON: CT abdomen and pelvis 04/24/2017, 07/12/2018 Abdominal ultrasound 08/17/2017, 07/12/2018 TECHNIQUE: Noncontrast MRCP. Source and MIP images reviewed. LIMITATIONS: None. FINDINGS: GALLBLADDER: A few stones layer dependently in the gallbladder. No pericholecystic fluid or gallbladder wall thickening. INTRAHEPATIC DUCTS: Nondilated. EXTRAHEPATIC DUCTS: Common duct is normal caliber. No dilatation of the pancreatic duct. No ductal filling defects noted. PANCREAS: Generally homogeneous, no gross mass or significant signal alteration. No surrounding infl ammatory changes or fluid. Pancreatic duct is normal. LIVER, SPLEEN, KIDNEYS, ADRENALS: Profound fatty infiltration of the liver worrisome for diffuse adv anced hepatic steatosis. VESSELS: No evidence of aneurysm. Grossly appropriate flow voids in the major vascular structures. LUNG BASES: Grossly clear. OTHER: No other significant finding. IMPRESSION: Tiny stones in the gallbladder. No MR CT evidence of acute cholecystitis No common duct stones. TECHNICAL DOCUMENTATION: JOB ID: [id number] [employer]- All Rights Reserved Reading location - IP/workstation name: [email or web address]
[2018-07-14 07:38] LABS: HEPATITIS A AB IGM Negative (Negative); HEPATITIS B CORE AB IGM Negative (Negative); HEPATITS B SURFACE ANTIGEN Negative (Negative)
[2018-07-14 10:44] LABS: HEPATITIS C VIRUS ANTIBODY <0.1 s/co ratio (0.0-0.9)
[2018-07-15 14:17] LABS: PATH REVIEW PATHOLOGIST REVIEWED
== END 2018-07-12 22:08 | disposition short-term general hospital (02) ==
LOC: ER 10:43
DX: K80.20 Calculus of gallbladder without cholecystitis without obstruction (principal); K76.0 Fatty (change of) liver, not elsewhere classified; R74.8 Abnormal levels of other serum enzymes; R10.84 Generalized abdominal pain; R10.816 Epigastric abdominal tenderness; R11.2 Nausea with vomiting, unspecified; R68.83 Chills (without fever); R61 Generalized hyperhidrosis; M79.10 Myalgia, unspecified site; R63.0 Anorexia; M54.9 Dorsalgia, unspecified; R07.9 Chest pain, unspecified; I10 Essential (primary) hypertension; F17.210 Nicotine dependence, cigarettes, uncomplicated; Z71.6 Tobacco abuse counseling; Z88.3 Allergy status to other anti-infective agents
CPT/HCPCS: 96376; 99406; 99285; 96361; 96374; 36415; 82962; 80307 ×3; 82550; 83690; 83735; 85025; 85652; 81025; 80053; 81001; 80074; 74181; 76705; 76380; S0119; J3490; J1170; J2405; J7030; J7120

== ENCOUNTER 2018-07-22 15:07 | Emergency (ER) | payer SELFPAY ==
[2018-07-22] MEDS ORDERED: ONDANSETRON 4 MG TAB.RAPDIS PO ONE (15:35)
[2018-07-22] MEDS ORDERED: FENTANYL CITRATE INJ/PF 100 MCG/2 ML AMPUL IV ONE (15:35)
--- NOTE | 2018-07-22 15:40 | ER Document Report ---
ED Medical Screen (RME) - General Chief Complaint: Post Surgical Pain Stated Complaint: POST SURGICAL COMPLICATIONS Time Seen by Provider: 07/22/18 15:23 Mode of Arrival: Ambulatory Information source: Patient Notes: 37-year-old female presents the emergency department with complaints of abdominal pain status post cholecystectomy 5 days ago at [place]. Patient states that she has a history of von Willebrand's disease. She was in the hospital for 5 days to monitor for bleeding. Patient states that she received DDAVP while in the hospital. Patient was just discharged from [place] yesterday. She was discharged home with a prescription for oxycodone. Patient states that she is been taking the medication but her abdominal pain has been worsening. She is also having associated nausea and vomiting. Patient states that she did not receive any nausea medication prior to discharge. Patient states that today the pain is becoming severe and she noticed some bleeding periumbilically. She describes the pain as a diffuse aching sensation. No radiation of the pain. No alleviating or exacerbating factors. Patient denies any hematemesis, melena , hematochezia, dysuria, hematuria. TRAVEL OUTSIDE OF THE [place] IN LAST 30 DAYS: No - Related Data Allergies/Adverse Reactions: valacyclovir [From Valtrex] Allergy (Verified 07/12/18 10:54) cayden Adverse Reaction (Verified 07/12/18 11:46) Past Medical History - Social History Chew tobacco use (# tins/day): No Frequency of alcohol use: None Drug Abuse: None - Past Medical History Cardiac Medical History: Reports: Hx Hypertension Renal/ Medical History: Reports: Hx Kidney Stones, Hx Ovarian Cysts. Denies: Hx Peritoneal Dialysis GI Medical History: Reports: Hx Gastroesophageal Reflux Disease. Denies: Hx Gastritis Psychiatric Medical History: Reports: Hx Anxiety, Hx Attention Deficit Hyperactivity Disorder Past Surgical History: Reports: Hx Cholecystectomy, Hx Kidney (Renal Surgery) - lithotripsy, Hx Oral Surgery - wisom teeth, Hx Orthopedic Surgery - L elbow bone graft, Hx Tonsillectomy - Immunizations Immunizations up to date: Yes Hx Diphtheria, Pertussis, Tetanus Vaccination: Yes Physical Exam - Vital signs Vitals: Temp Pulse Resp BP Pulse Ox 98.3 F 101 H 20 134/84 H 100 07/22/18 15:21 07/22/18 15:21 07/22/18 15:21 07/22/18 15:21 07/22/18 15:21 Course - Vital Signs Vital signs: Temp Pulse Resp BP Pulse Ox 98.3 F 101 H 20 134/84 H 100 07/22/18 15:21 07/22/18 15:21 07/22/18 15:21 07/22/18 15:21 07/22/18 15:21
[2018-07-22 16:11] LABS: ABSOLUTE BASOPHILS # (AUTO) 0.1 10^3/uL (0.0-0.2); ABSOLUTE EOSINOPHILS # (AUTO) 0.2 10^3/uL (0.0-0.6); ABSOLUTE LYMPHOCYTES (AUTO) 1.6 10^3/uL (0.5-4.7); ABSOLUTE NEUT (AUTO) 5.3 10^3/uL (1.7-8.2); BASOPHILS % (AUTO) 1.5 % (0-2); HEMOGLOBIN 16.9 g/dL (12.0-15.5); MEAN CORPUSCULAR HEMOGLOBIN 37.7 pg (27.0-33.4); MEAN CORPUSCULAR HGB CONC 34.4 g/dL (32.0-36.0); MEAN CORPUSCULAR VOLUME 110 fl (80-97); MONOCYTES % (AUTO) 12.8 % (3-13); PLATELET COUNT 434 10^3/uL (150-450); RED BLOOD COUNT 4.47 10^6/uL (3.72-5.28); RED CELL DISTRIBUTION WIDTH 14.3 % (11.5-14.0); SEGMENTED NEUTROPHILS % (AUTO) 64.7 % (42-78); TOTAL CELLS COUNTED % (AUTO) 100 %; WHITE BLOOD COUNT 8.2 10^3/uL (4.0-10.5)
[2018-07-22 16:17] LABS: INTERNATIONAL RATION (INR) 0.88; PROTHROMBIN TIME 12.4 SEC (11.4-15.4)
[2018-07-22 16:18] LABS: PARTIAL THROMBOPLASTIN TIME 37.2 SEC (23.5-35.8)
[2018-07-22 16:19] LABS: APPEARANCE,URINE SLIGHTLY-CLOUDY; BILIRUBIN,URINE NEGATIVE (NEGATIVE); COLOR,URINE YELLOW; GLUCOSE, URINE NEGATIVE (NEGATIVE); KETONES,URINE NEGATIVE (NEGATIVE); LEUKOCYTE ESTERASE,URINE NEGATIVE (NEGATIVE); NITRITE,URINE NEGATIVE (NEGATIVE); PROTEIN,URINE NEGATIVE (NEGATIVE); URINE SPECIFIC GRAVITY 1.008; UROBILINOGEN,URINE NEGATIVE mg/dL (<2.0)
[2018-07-22 16:38] LABS: ALANINE AMINOTRANSFERASE 42 U/L (9-52); ALBUMIN 5.1 g/dL (3.5-5.0); ALKALINE PHOSPHATASE 102 U/L (38-126); ANION GAP 13 (5-19); ASPARTATE AMINO TRANSFERASE 67 U/L (14-36); BILIRUBIN,DIRECT 0.5 mg/dL (0.0-0.4); BILIRUBIN,TOTAL 0.9 mg/dL (0.2-1.3); BLOOD UREA NITROGEN 6 mg/dL (7-20); CALCIUM 10.9 mg/dL (8.4-10.2); CARBON DIOXIDE 27 mmol/L (22-30); CHLORIDE 99 mmol/L (98-107); GLUCOSE 91 mg/dL (75-110); LIPASE 81.7 U/L (23-300); POTASSIUM 5.1 mmol/L (3.6-5.0); SODIUM 138.9 mmol/L (137-145); TOTAL PROTEIN 10.3 g/dL (6.3-8.2)
--- NOTE | 2018-07-22 17:14 | RADIOLOGY REPORT (SQ) ---
EXAM DESCRIPTION: CT ABD/PELVIS WITH IV ONLY COMPLETED DATE/TIME: 07/22/2018 5:00 pm REASON FOR STUDY: diffuse abdominal pain COMPARISON: 03/15/2018 TECHNIQUE: CT scan of the abdomen and pelvis performed using helical scanning technique with dynamic intravenous contrast injection. No oral contrast. Images reviewed with lung, soft tissue, and bone windows. Reconstructed coronal and sagittal MPR images reviewed. Delayed images for evaluation of the urinary system also acquired. All images stored on PACS. All CT scanners at this facility use dose modulation, iterative reconstruction, and/or weight based d osing when appropriate to reduce radiation dose to as low as reasonably achievable (ALARA). [facility]: Dose Right [facility]: CareDose [facility]: Dose Right [facility]: Teradose 4D [facility]: [employer] CONTRAST TYPE AND DOSE: contrast/concentration: Isovue 350.00 mg/ml; Total Contrast Delivered: 74.0 ml; Total Saline Delivered: 57.0 ml RENAL FUNCTION: BUN 6 creatinine 0.6 RADIATION DOSE: CT Rad equipment meets quality standard of care and radiation dose reduction techniq ues were employed. CTDIvol: 5.0 - 6.5 mGy. DLP: 630 mGy-cm.. LIMITATIONS: None. FINDINGS: LOWER CHEST: No significant findings. No nodules or infiltrates. LIVER: The liver is somewhat low in attenuation. SPLEEN: Normal size. No focal lesions. PANCREAS: No masses. No significant calcifications. No adjacent inflammation or peripancreatic fluid collections. Pancreatic duct not dilated. GALLBLADDER: Surgical clips are present in the gallbladder fossa. There is a fluid collection in the gallbladder fossa ADRENAL GLANDS: No significant masses or asymmetry. RIGHT KIDNEY AND URETER: No solid masses. No significant calcifications. No hydronephrosis or hyd roureter. LEFT KIDNEY AND URETER: No solid masses. No significant calcifications. No hydronephrosis or hydr oureter. AORTA AND VESSELS: No aneurysm. No dissection. Renal arteries, SMA, celiac without stenosis. RETROPERITONEUM: No retroperitoneal adenopathy, hemorrhage or masses. BOWEL AND PERITONEAL CAVITY: No masses or inflammatory changes. No free fluid or peritoneal masses. APPENDIX: Normal. PELVIS: 3 cm right ovarian cyst. No solid masses. No free fluid. ABDOMINAL WALL: No masses. No hernias. BONES: No significant or acute findings. OTHER: No other significant finding. IMPRESSION: 1. Fluid collection in the gallbladder fossa. Bile leak versus abscess. 2. Fatty infiltration of the liver. 3. 3 cm right ovarian cyst almost certainly benign. No follow-up is required for this. TECHNICAL DOCUMENTATION: JOB ID: [id number] Quality ID # [id number]: Final reports with documentation of one or more dose reduction techniques (e.g., Au tomated exposure control, adjustment of the mA and/or kV according to patient size, use of iterative reconstruction technique) 2010 [employer] All Rights Reserved Reading location - IP/workstation name: [email or web address]
[2018-07-22] MEDS ORDERED: ONDANSETRON HCL INJ/PF 4 MG/2 ML SDV IV ONE (18:31)
[2018-07-22] MEDS ORDERED: HYDROMORPHONE HCL INJ/PF 2 MG/ML AMPULE IV ONE (18:31)
[2018-07-22] MEDS ORDERED: NORMAL SALINE 1000 ML 1,000 ML IV ONE (18:31)
--- NOTE | 2018-07-22 18:32 | ER Document Report ---
ED GI/ - General Chief Complaint: Post Surgical Pain Stated Complaint: POST SURGICAL COMPLICATIONS Time Seen by Provider: 07/22/18 15:23 Mode of Arrival: Ambulatory Information source: Patient Notes: Patient had a laparoscopic cholecystectomy done last week at [facility]. She presented to the emergency room today complaining of generalized abdominal pain. Patient says she ran out of her pain medication at home. TRAVEL OUTSIDE OF THE [place] IN LAST 30 DAYS: No - HPI Patient complains to provider of: Abdominal pain Onset: Just prior to arrival Timing/Duration: Sudden Quality of pain: Sharp Severity at maximum: Severe Severity in ED: Moderate Pain Level: 3 Context: Other - Laparoscopic cholecystectomy Location: Other - Generalized abdominal Vaginal bleeding (Compared to normal period): None OB ultrasound done: No vitamins taken: No Associated symptoms: None Exacerbated by: Denies Relieved by: Denies Similar symptoms previously: No Recently seen / treated by doctor: Yes - Related Data Allergies/Adverse Reactions: valacyclovir [From Valtrex] Allergy (Verified 07/12/18 10:54) cayden Adverse Reaction (Verified 07/12/18 11:46) Past Medical History - General Information source: Patient - Social History Smoking Status: Current Every Day Smoker Chew tobacco use (# tins/day): No Frequency of alcohol use: None Drug Abuse: None Family History: Reviewed & Not Pertinent Patient has suicidal ideation: No Patient has homicidal ideation: No - Past Medical History Cardiac Medical History: Reports: Hx Hypertension Renal/ Medical History: Reports: Hx Kidney Stones, Hx Ovarian Cysts. Denies: Hx Peritoneal Dialysis GI Medical History: Reports: Hx Gastroesophageal Reflux Disease. Denies: Hx Gastritis Psychiatric Medical History: Reports: Hx Anxiety, Hx Attention Deficit Hyperactivity Disorder Past Surgical History: Reports: Hx Cholecystectomy, Hx Kidney (Renal Surgery) - lithotripsy, Hx Oral Surgery - wisom teeth, Hx Orthopedic Surgery - L elbow bone graft, Hx Tonsillectomy - Immunizations Immunizations up to date: Yes Hx Diphtheria, Pertussis, Tetanus Vaccination: Yes Review of Systems - Review of Systems Constitutional: No symptoms reported EENT: No symptoms reported Cardiovascular: No symptoms reported Respiratory: No symptoms reported Gastrointestinal: Abdominal pain Genitourinary: No symptoms reported Female Genitourinary: No symptoms reported Musculoskeletal: No symptoms reported Skin: No symptoms reported Hematologic/Lymphatic: No symptoms reported Neurological/Psychological: No symptoms reported Physical Exam - Vital signs Vitals: Temp Pulse Resp BP Pulse Ox 98.3 F 101 H 20 134/84 H 100 07/22/18 15:21 07/22/18 15:21 07/22/18 15:21 07/22/18 15:21 07/22/18 15:21 Interpretation: Normal - General General appearance: Appears well, Alert - HEENT Head: Normocephalic, Atraumatic Eyes: Normal Pupils: PERRL - Respiratory Respiratory status: No respiratory distress Chest status: Nontender Breath sounds: Normal Chest palpation: Normal - Cardiovascular Rhythm: Regular Heart sounds: Normal auscultation Murmur: No - Abdominal Inspection: Normal Distension: No distension Bowel sounds: Normal Tenderness: Tender - Surgical incision site without any sign of infection on discharge. Organomegaly: No organomegaly - Back Back: Normal, Nontender - Extremities General upper extremity: Normal inspection, Nontender, Normal color, Normal ROM , Normal temperature General lower extremity: Normal inspection, Nontender, Normal color, Normal ROM , Normal temperature, Normal weight bearing. No: Azar's sign - Neurological Neuro grossly intact: Yes Cognition: Normal Orientation: AAOx4 [place] Coma Scale Eye Opening: Spontaneous [place] Coma Scale Verbal: Oriented [place] Coma Scale Motor: Obeys Commands Dong Coma Scale Total: 15 Speech: Normal Motor strength normal: LUE, RUE, LLE, RLE Sensory: Normal - Psychological Associated symptoms: Normal affect, Normal mood - Skin Skin Temperature: Warm Skin Moisture: Dry Skin Color: Normal Course - Vital Signs Vital signs: Temp Pulse Resp BP Pulse Ox 97.8 F 94 15 114/74 97 07/22/18 19:59 07/22/18 19:59 07/22/18 19:59 07/22/18 19:59 07/22/18 19:59 - Laboratory Result Diagrams: 07/22/18 15:40 07/22/18 15:40 Laboratory results interpreted by me: 07/22/18 07/22/18 07/22/18 15:40 15:40 15:40 Hgb 16.9 H Hct 49.0 H MCV 110 H MCH 37.7 H RDW 14.3 H APTT 37.2 H Potassium 5.1 H BUN 6 L Calcium 10.9 H Direct Bilirubin 0.5 H AST 67 H Total Protein 10.3 H Albumin 5.1 H - Diagnostic Test Radiology reviewed: Image reviewed, Reports reviewed - Transfer of Care Notes: 07/23/18 03:25 Abdominal pain of unknown etiology. Discharge - Discharge Clinical Impression: Abdominal pain Qualifiers: Abdominal location: generalized Qualified Code(s): R10.84 - Generalized abdominal pain Condition: Stable Disposition: HOME, SELF-CARE Instructions: Abdominal Pain ([facility]) Additional Instructions: Please follow-up with your surgeon at [facility] tomorrow morning. Return to the emergency room if your condition worsens. Prescriptions: Oxycodone HCl/Acetaminophen [Percocet 7.5-325 mg Tablet] 1 each PO BID PRN #10 tablet PRN Reason:
[2018-07-22 20:02] VITALS: BP 114/74
== END 2018-07-22 20:02 | disposition home or self-care (01) ==
LOC: ER 15:07
DX: R10.84 Generalized abdominal pain (principal); G89.18 Other acute postprocedural pain; F17.200 Nicotine dependence, unspecified, uncomplicated; I10 Essential (primary) hypertension; Z88.3 Allergy status to other anti-infective agents; Z87.442 Personal history of urinary calculi
CPT/HCPCS: 99284; 96361; 96374; 96375; 36415; 83690; 85025; 85610; 85730; 81025; 80053; 81001; 74177; S0119; J3010; J1170; J2405; J7030

== ENCOUNTER 2018-07-24 22:06 | Emergency (ER) | payer SELFPAY ==
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
[2018-07-24] MEDS ORDERED: ONDANSETRON HCL INJ/PF 4 MG/2 ML SDV IV ONE (23:15)
[2018-07-24] MEDS ORDERED: HYDROMORPHONE HCL INJ/PF 2 MG/ML AMPULE IV ONE (23:15)
[2018-07-24] MEDS ORDERED: AMOXICILLIN TR/POT CLAVULANATE 500-125 MG TAB PO ONE (23:17)
[2018-07-25] MEDS ORDERED: HYDROMORPHONE HCL INJ/PF 2 MG/ML AMPULE IV ONE (00:29)
--- NOTE | 2018-07-25 01:54 | RADIOLOGY REPORT (SQ) ---
CLINICAL DATA: 37-year-old female status post dog bite with bilateral forearm pain. TECHNICAL DATA: Two x-ray views of each forearm were performed. FINDINGS: RIGHT: There is no evidence of fracture or dislocation. There is no significant arthritis or degenerative change. No focal lytic or sclerotic bone lesions are seen. Bone mineralization is normal. There is soft tissue swelling and air in the subcutaneous soft tissues along the volar aspect of the distal right forearm. No radiopaque foreign bodies are identified. LEFT: There is no evidence of fracture or dislocation. There is no significant arthritis or degenerative change. No focal lytic or sclerotic bone lesions are seen. Bone mineralization is normal. There is soft tissue swelling and air in the subcutaneous soft tissues along the volar aspect of the distal left forearm. No radiopaque foreign bodies are identified. IMPRESSION: No evidence of acute osseous injury. There is soft tissue swelling and air in the subcutaneous soft tissues along the volar aspect of the distal forearms bilaterally. No radiopaque foreign bodies are identified.
--- NOTE | 2018-07-25 01:58 | RADIOLOGY REPORT (SQ) ---
CLINICAL DATA: 37-year-old female status post dog bite. TECHNICAL DATA: Three x-ray views of each hand were performed. FINDINGS: RIGHT: There is no evidence of fracture or dislocation. There is no significant arthritis or degenerative change. No focal lytic or sclerotic bone lesions are seen. Bone mineralization is normal. There is soft tissue swelling along the distal aspect of the right forearm with associated subcutaneous emphysema within the volar soft tissues. No radiopaque foreign bodies are identified. LEFT: There is no evidence of fracture or dislocation. There is no significant arthritis or degenerative change. No focal lytic or sclerotic bone lesions are seen. Bone mineralization is normal. There is soft tissue swelling along the distal left forearm with subcutaneous emphysema in the volar soft tissues. No radiopaque foreign bodies are identified. IMPRESSION: No evidence of acute osseous injury. There is soft tissue swelling along the distal forearms bilaterally with associated subcutaneous emphysema along the volar aspects of both forearms without definite radiopaque foreign bodies.
[2018-07-25] MEDS ORDERED: METHOCARBAMOL 750 MG TABLET PO ONE (02:17)
[2018-07-25] MEDS ORDERED: FENTANYL CITRATE INJ/PF 100 MCG/2 ML AMPUL IV ONE (02:17)
[2018-07-25 03:28] VITALS: BP 117/81
== END 2018-07-25 03:31 | disposition home or self-care (01) ==
LOC: ER 22:06
PROC: 2W3CX1Z Immobilization of Right Lower Arm using Splint (ICD-10-PCS; principal; 2018-07-24)
DX: S51.851A Open bite of right forearm, initial encounter (principal); S51.852A Open bite of left forearm, initial encounter; W54.0XXA Bitten by dog, initial encounter; I10 Essential (primary) hypertension
CPT/HCPCS: 96376; 99283; 96374; 96375; 73090; 73130; 29125; L3908 ×2; J3010; J3490; J1170 ×2; J2405

== ENCOUNTER 2018-08-28 03:08 | Emergency (ER) | payer SELFPAY ==
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
[2018-08-28] MEDS ORDERED: NORMAL SALINE 1000 ML 1,000 ML IV ONE (03:49)
--- NOTE | 2018-08-28 04:28 | RADIOLOGY REPORT (SQ) ---
CLINICAL HISTORY: trauma loss of right vision loss COMPARISON: None. TECHNIQUE: CT HEAD ANGIOGRAPHY WITHOUT THEN WITH IV CONTRAST on 08/28/2018 3:49 AM OUTPATIENT CODING SPECIALIST This exam was performed according to our departmental dose-optimization program, which includes automated exposure control, adjustment of the mA and/or kV according to patient size and/or use of iterative reconstruction technique. MIP reconstructions were generated. Stenoses are calculated by NASCET criteria. FINDINGS: The bilateral anterior, middle and posterior cerebral arteries are normal in configuration. The vertebral basilar system is unremarkable. IMPRESSION: No evidence of stenosis, vessel occlusion or aneurysm.
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
[2018-08-28] MEDS ORDERED: TETRACAINE HCL 0.5% OPH SOLN 4 ML OD ONE (04:51)
[2018-08-28 06:04] VITALS: BP 111/83
--- NOTE | 2018-08-28 06:15 | RADIOLOGY REPORT (SQ) ---
CLINICAL HISTORY: trauma COMPARISON: None. TECHNIQUE: CT MAXILLOFACIAL WITH IV CONTRAST on 08/28/2018 3:33 AM INSPECTOR OF WEIGHTS AND MEASURES This exam was performed according to our departmental dose-optimization program, which includes automated exposure control, adjustment of the mA and/or kV according to patient size and/or use of iterative reconstruction technique. FINDINGS: There is no acute fracture. The paranasal sinuses are clear. Orbits and globes are unremarkable. Mastoid air cells are clear. Temporomandibular joints are intact. There are no significant soft tissue abnormalities. IMPRESSION: No post-traumatic findings.
--- NOTE | 2018-08-28 08:17 | EKG REPORT ---
SEVERITY:- OTHERWISE NORMAL ECG - SINUS TACHYCARDIA : Confirmed by: Dayana Fung MD 28-Aug-2018 08:16:07
== END 2018-08-28 06:25 | disposition home or self-care (01) ==
LOC: ER 03:08
DX: S00.11XA Contusion of right eyelid and periocular area, initial encounter (principal); R51 Headache; V47.6XXA Car passenger injured in collision with fixed or stationary object in traffic accident, initial encounter; R55 Syncope and collapse; H53.8 Other visual disturbances; R47.81 Slurred speech; I10 Essential (primary) hypertension; R00.0 Tachycardia, unspecified; R10.817 Generalized abdominal tenderness; Z90.49 Acquired absence of other specified parts of digestive tract; Z88.3 Allergy status to other anti-infective agents
CPT/HCPCS: 93005; 99285; 96360; 96361; 70496; 70487; 70498; 93010; J7030; J3490

== ENCOUNTER 2020-05-28 10:18 | Emergency (ER) | payer SELFPAY ==
--- NOTE | 2020-05-28 11:37 | ER Document Report ---
ED Oral Problem - General Chief Complaint: Toothache Stated Complaint: TOOTH PAIN Time Seen by Provider: 05/28/20 11:30 Mode of Arrival: Ambulatory Information source: Patient Notes: Patient is a 39-year-old female comes emergency room with complaint of left upper dental pain. Patient states approximately 1 hour ago she had the back upper left molar crack and 3 days ago piece of it came off. Since that time she has had severe pain discomfort with a sore throat. She is also had some left ear pain with this. She denies any fevers no nausea vomiting or diarrhea. Patient has a past medical history pertinent for von Willebrand's disease. Patient denies smoking. Patient states she is taken Tylenol and ibuprofen [id number] as well as some tramadol without any relief. TRAVEL OUTSIDE OF THE [place] IN LAST 30 DAYS: No - HPI Patient complains to provider of: Jaw pain. No: Swelling of face, Swelling of jaw Onset: Other - 3 days ago Onset: Sudden Quality of pain: Sharp, Throbbing Severity: Moderate Pain Level: 3 Context: Fractured tooth Sore throat: Mild Swollen jaw/face: Mild Associated symptoms: Dental decay Worsened by: Heat Relieved by: Nothing - Related Data Allergies/Adverse Reactions: valacyclovir [From Valtrex] Allergy (Verified 05/28/20 11:22) cayden Adverse Reaction (Verified 05/28/20 11:22) Past Medical History - General Information source: Patient - Social History Smoking Status: Never Smoker Chew tobacco use (# tins/day): No Frequency of alcohol use: None Drug Abuse: None Lives with: Family Family History: Reviewed & Not Pertinent Patient has homicidal ideation: No - Past Medical History Cardiac Medical History: Reports: Hx Hypertension Renal/ Medical History: Reports: Hx Kidney Stones, Hx Ovarian Cysts. Denies: Hx Peritoneal Dialysis GI Medical History: Reports: Hx Gastroesophageal Reflux Disease. Denies: Hx Gastritis Psychiatric Medical History: Reports: Hx Anxiety, Hx Attention Deficit Hyperactivity Disorder Past Surgical History: Reports: Hx Cholecystectomy, Hx Kidney (Renal Surgery) - lithotripsy, Hx Oral Surgery - wisom teeth, Hx Orthopedic Surgery - L elbow bone graft, Hx Tonsillectomy - Immunizations Immunizations up to date: Yes Hx Diphtheria, Pertussis, Tetanus Vaccination: Yes Review of Systems - Review of Systems Constitutional: No symptoms reported EENT: Dental problem Cardiovascular: No symptoms reported Respiratory: No symptoms reported Gastrointestinal: No symptoms reported Genitourinary: No symptoms reported Female Genitourinary: No symptoms reported Musculoskeletal: No symptoms reported Skin: No symptoms reported Hematologic/Lymphatic: No symptoms reported Neurological/Psychological: No symptoms reported -: Yes All other systems reviewed and negative Physical Exam - Vital signs Vitals: Temp Pulse Resp BP Pulse Ox 98.1 F 78 16 125/79 100 05/28/20 10:35 05/28/20 10:35 05/28/20 10:35 05/28/20 10:35 05/28/20 10:35 Interpretation: Bradycardic - Notes Notes: PHYSICAL EXAMINATION: GENERAL: Patient is well-nourished well-developed 39-year-old female no apparent distress on physical exam today. She does appear uncomfortable though. HEAD: Atraumatic, normocephalic. Examination of the head externally and face shows no signs of external swelling of the jawline. EYES: Pupils equal round and reactive to light, extraocular movements intact, conjunctiva are normal. ENT: Examination patient's oral cavity shows there to be a fractured left upper back molar posterior portion of the tooth difficult to see on examination. Moderate tenderness to palpate with erythematous changes around the gum tooth line. No notable exudate seen at this time. Further evaluation posterior pharynx shows mild amount of erythema. NECK: Normal range of motion, supple without lymphadenopathy LUNGS: Breath sounds clear to auscultation bilaterally and equal. No wheezes rales or rhonchi. HEART: Regular rate and rhythm without murmurs NEUROLOGICAL: Normal speech, normal gait. Normal sensory, motor exams PSYCH: Normal mood, normal affect. SKIN: Warm, Dry, normal turgor, no rashes or lesions noted. Course - Re-evaluation Re-evalutation: 05/28/20 11:34 Evaluation of patient's dental problem does show that she has a fractured left back upper molar. Most likely dental infection is suspected. Patient does state that she is attempted to use referrals from our ER before at other universities like [place] but they state that they will not take any Rx referral. I have told patient she can go to a walk-in clinic and they can become her primary to get a referral. Patient is slightly upset about that. I have informed her that we cannot fix this problem in the ER we are not dentist. 05/28/20 12:16 Our social security benefits interviewer Nate Medel spent approximately 45 minutes to an hour on tracking down patient some possible referral options that may take her for having von Willebrand's disease. She gave her the contact information and gave her her card personally to contact her if she has any problems. This is the best referral options I can find for the patient at this time. - Vital Signs Vital signs: Temp Pulse Resp BP Pulse Ox 98.1 F 87 16 118/82 99 05/28/20 11:22 05/28/20 12:25 05/28/20 12:25 05/28/20 12:25 05/28/20 12:25 Discharge - Discharge Clinical Impression: Pain, dental, Dental infection Condition: Stable Disposition: HOME, SELF-CARE Instructions: Clindamycin ([facility]), Oral Narcotic Medication ([facility]) Additional Instructions: Our social security benefits interviewer was able to find you a few options that you can contact to see about getting dental follow-up. That is the best I can do out of the emergency room besides tell you to call on the phone to local ones. Take the medication as prescribed. Is been sent to the pharmacy of your choice that you gave the nu rse on arrival. Should you have any concerns or problems arise return to ER for reevaluation. Prescriptions: Acetaminophen with Codeine [Tylenol #3 Tablet] 1 each PO Q4HP PRN #20 tablet PRN Reason: Clindamycin HCl 300 mg PO QID #40 capsule Fluconazole [Diflucan] 150 mg PO ONCE PRN #1 tablet PRN Reason: Forms: Elevated Blood Pressure, Smoking Cessation Education, Parent Work Note
[2020-05-28 12:25] VITALS: BP 118/82
== END 2020-05-28 12:26 | disposition home or self-care (01) ==
LOC: ER 10:18
DX: K04.7 Periapical abscess without sinus (principal); K08.89 Other specified disorders of teeth and supporting structures; H92.02 Otalgia, left ear; R00.1 Bradycardia, unspecified; R68.84 Jaw pain; Z88.8 Allergy status to other drugs, medicaments and biological substances; I10 Essential (primary) hypertension
CPT/HCPCS: 99283